=== PATIENT | female | born 1990 | race Caucasian/White ===

== ENCOUNTER → 2016-07-21 | Outpatient (CLI) | payer MEDICAID ==
[~2016-07-21] MED LIST: DOCU100C37 PO; FOLI20CA PO; IBUP-1780 PO; MULT-228 PO; OXYC-471 PO; SERT25TA PO
--- NOTE | 2016-07-21 18:25 | Diagnostic Imaging Report ---
OB ultrasound. INDICATION: growth. FINDINGS: The heart rate is 134 beats per minute. The placenta is anterior. There is no placenta previa. The position is cephalic. The cervix is long and is closed. The growth parameters are biparietal diameter at 31 weeks and 2 days, head circumference at 36 weeks and zero days, abdominal circumference at 34 weeks and 2 days and the femur length at 33 weeks and 5 days. This is averaged at 34 weeks and 6 days. Based on the ROYA provided Dr. Weeks's office of 09/11/2016, the current gestational age is at 32 weeks and 4 days. The average growth parameters are at 34 weeks and 6 days with the biparietal diameter at 1.9 standard deviation, at the upper limits of normal. Estimated weight at this time is 2.4 kg. IMPRESSION: Live single intrauterine . growth parameters is higher than average with biparietal diameter at 1.9 standard deviations above the mean. Dictated by: Dictated on workstation # [id number]
== END ==
LOC: RAD 14:12
PROVIDERS: ATTEND Obstetrics & Gynecology
DX: O26.843 Uterine size-date discrepancy, third trimester (principal); Z3A.34 34 weeks gestation of pregnancy
CPT/HCPCS: 76805

== ENCOUNTER → 2016-08-19 | Outpatient (CLI) | payer MEDICAID ==
--- NOTE | 2016-08-19 14:07 | Diagnostic Imaging Report ---
EXAMINATION: OB ultrasound. INDICATION: Followup growth. FINDINGS: heart rate is 134 beats per minute. The placenta is anterior. No placenta previa. Please note that the cervix appears to be open with perhaps 1 cm length of the cervix distally that is still closed. Better evaluation could be performed with a transvaginal ultrasound if needed. The amniotic fluid index is 23.5 cm. The right renal pelvis is slightly prominent at the 1 cm in AP dimension, at the upper limits of normal. The left kidney could not be seen due to position. The growth parameters are: Biparietal diameter: 38 weeks 4 days Head circumference: 40 weeks and 0 day Abdominal circumference: 38 weeks 3 days Femur length: 38 weeks 4 days These average at: 39 weeks and 0 day with estimated weight of 3.6 kg. This compares to a gestational age of 36 weeks and 5 days based on ROYA of 09/11/[address] Weeks. IMPRESSION: 1. The size and amniotic fluid index are at the upper limits of normal. 2. The cervix appears open with only short segment near the external os probably closed. Correlate clinically and with transvaginal ultrasound if needed. The findings are discussed with Dr. Weeks by Dr. Flores at time of dictation. Dictated by: Dictated on workstation # [id number]
== END ==
LOC: RAD 10:11
PROVIDERS: ATTEND Obstetrics & Gynecology
DX: O26.843 Uterine size-date discrepancy, third trimester (principal); Z3A.39 39 weeks gestation of pregnancy
CPT/HCPCS: 76816

== ENCOUNTER → 2016-08-22 | Outpatient (CLI) | payer MEDICAID ==
--- NOTE | 2016-08-22 10:14 | Diagnostic Imaging Report ---
EXAM: OB ultrasound and biophysical profile INDICATION: Polyhydramnios. FINDINGS: heart rate is 138 bpm. The placenta is anterior. No placenta previa. The amniotic fluid index is 18.3 cm. The renal pelvis is 9 mm in AP dimension bilaterally, upper limits of normal. Biophysical profile criteria are all met with total biophysical profile score of 8/8. position is cephalic. The growth parameters are: Biparietal diameter: 37 weeks 2 days Head circumference: 38 weeks and 5 days Abdominal circumference: 37 weeks 3 days Femur length: 38 weeks and 2 days These average at: 38 weeks and 0 day. This is within normal limits compared to gestational age of 37 weeks and 1 day based on ROYA of 09/11/2016. Differences in the growth parameters compared to 08/19/2016 exam are probably artifactual related to technique and positional differences. The cervix is not well-evaluated on this exam as it is obscured by the head. IMPRESSION: Biophysical profile score is 8/8. Dictated by: Dictated on workstation # [id number]
== END ==
LOC: RAD 08:23
PROVIDERS: ATTEND Obstetrics & Gynecology
DX: O26.843 Uterine size-date discrepancy, third trimester (principal); O40.3XX1 Polyhydramnios, third trimester, fetus 1; Z3A.37 37 weeks gestation of pregnancy
CPT/HCPCS: 76805; 76819

== ENCOUNTER → 2016-08-27 | Outpatient (CLI) | payer MEDICAID ==
--- NOTE | 2016-08-27 16:25 | Diagnostic Imaging Report ---
Biophysical profile OB ultrasound. INDICATION: 040.3x, polyhydramnios. FINDINGS: The heart rate is 136 beats per minute. position is cephalic. The amniotic fluid index is 27 cm. This is increased compared to 08/22/2016 measurement of 18.3 cm. Biophysical profile criteria are met with total score of 8/8. IMPRESSION: Polyhydramnios, HOA is 27 cm. The findings were given to Dr. Weeks by Ms. Wagner, the computer technologist who performed the exam. Dictated by: Dictated on workstation # [id number]
== END ==
LOC: RAD 13:39
PROVIDERS: ATTEND Obstetrics & Gynecology
DX: O40.3XX1 Polyhydramnios, third trimester, fetus 1 (principal); Z3A.00 Weeks of gestation of pregnancy not specified
CPT/HCPCS: 76819

== ENCOUNTER 2016-09-03 10:20 | Inpatient (IN) | payer MEDICAID ==
[~2016-09-03] VITALS: Ht 162.6 cm; Wt 117.5 kg
[2016-09-03] MEDS ORDERED: SERT25TA PO (10:35)
[2016-09-03] MEDS ORDERED: MULT-228 PO (10:35)
[2016-09-03] MEDS ORDERED: FOLI20CA PO (10:35)
[2016-09-03 10:43] VITALS: BP 126/77
[2016-09-03] MEDS ORDERED: fentaNYL INJECTION 100 MCG/2 ML AMP ONE (11:49)
[2016-09-03] MEDS ORDERED: KETAMINE HCL 100 MG/ML 5 ML VIAL ONE (11:49)
[2016-09-03 11:53] LABS: BASOPHILS % (AUTO) 0 % (0-10); EOSINOPHILS # (AUTO) 0.2 10^3/uL (0.0-0.3); EOSINOPHILS % (AUTO) 2 % (0-10); LYMPHOCYTES # (AUTO) 1.8 X 10^3 (1.0-4.0); LYMPHOCYTES % (AUTO) 17 % (12-44); MEAN CORPUSCULAR HEMOGLOBIN 32 PG (25-34); MEAN CORPUSCULAR HGB CONC 35 G/DL (32-36); MEAN CORPUSCULAR VOLUME 91 FL (80-99); MEAN PLATELET VOLUME 12.1 FL (7.4-10.4); MONOCYTES # (AUTO) 0.8 X 10^3 (0.0-1.0); MONOCYTES % (AUTO) 8 % (0-12); NEUTROPHILS # (AUTO) 7.4 X 10^3 (1.8-7.8); NEUTROPHILS % (AUTO) 73 % (42-75); PLATELET COUNT 158 10^3/uL (130-400); RED BLOOD COUNT 4.43 10^6/uL (4.35-5.85); RED CELL DISTRIBUTION WIDTH 13.4 % (10.0-14.5); WHITE BLOOD COUNT 10.1 10^3/uL (4.3-11.0)
[2016-09-03] MEDS ORDERED: ceFAZolin 2 GM/50 ML NS 50 ML ONE (11:59)
[2016-09-03] MEDS ORDERED: LACTATED RINGERS 1,000 ML IV ONE ×2 (12:00→12:56)
[2016-09-03] MEDS ORDERED: FAMOTIDINE 20MG/2ML IV (PEPCID) IV ONE (12:00)
[2016-09-03] MEDS ORDERED: CITRIC ACID/SOB CIT (BICITRA) 30 ML UDC PO ONE (12:00)
--- NOTE | 2016-09-03 12:13 | History & Physical-OB ---
OB - Chief Complaint & HPI Date Date of Admission: Date of Admission: Chief Complaint/History OB-Reason for Admission/Chief: Onset of Labor Hx : 2 Hx Para: 1 Expected Date of Delivery: September 11, 2016 Gestational Age in Weeks: 38 Gestational Age in Days: 5 Other reason for admission: 26 y/o @ 38w6d by 8 wk sono Presents with ctx q 2-3 mins since last night. No LOF VB. Fetus is active. Has also had emesis and not eaten at all this AM. H/o CD x 1 desiring repeat (baby adopted out) H/o pre-eclampsia at term, on ASA for risk reduction H/o tobacco use (quit) LGA fetus (3286g at 37 wga) GERD on zantac Depression on zoloft Polyhydramnios at 36 wga (last HOA 27cm) History of Labs A+ Antibody neg RI Hep B/C neg/neg HIV neg RPR NR GC/CT neg/neg GBS neg Allergies and Home Medications Allergies Coded Allergies: Penicillins (Verified Allergy, Unknown, RASH, 09/03/16) Home Medications Folic Acid 20 Mg Capsule, 20 MG PO DAILY, (Reported) Multivitamin 1 Each Tab.chew, 1 EACH PO DAILY, (Reported) Sertraline HCl 25 Mg Tablet, 25 MG PO DAILY, (Reported) OB - History Hx of Present Care: Yes Ultrasounds: Abnormal US findings (LGA fetus, polyhydramnios) Obstetrical Complications: Other (see above) Medical Complications: Other (see above HPI) Obstetrical History Hx : 2 Hx Para: 1 Number of Living Children: 1 Hx Induced Hypertens: Yes Delivery History Hx Section: Yes Patient Past Medical History see above HPI Social History/Family History HIV/AIDS: No Recent Infectious Disease Expo: No Sexually Transmitted Disease: No Alcohol Use: Denies Use Recreational Drug Use: No Smoking Cessation: Former smoker 2nd Hand Smoke Exposure: No Immunizations Hepatitis A: No Hepatitis B: No Tetanus Booster (TDap): Less than 5yrs Rubella: immune RPR/VDRL: Negative GBS Status: Negative HBsAG: Negative OB - Admission Exam Physical Exam Vitals: Vital Signs 09/03/16 10:43 Temp 98.0 Pulse 64 Resp 18 B/P (MAP) 126/77 O2 Delivery Room Air HEENT: NCAT Heart: Rhythm Normal Lungs: Clear Abdomen: Gravid Cervical Dilatation: Fingertip Effacement: 50% Station: -2 Membranes: Intact Heart Rate: 140's Accelerations: Accelerations Present Decelerations: No Decelerations Short Term Variability: Present Custodial Variability: Average (6-25) Contractions on Admission: < 5 Minutes Apart Labs Laboratory Tests Test 09/03/16 11:30 Range/Units White Blood Count 10.1 4.3-11.0 10^3/uL Red Blood Count 4.43 4.35-5.85 10^6/uL Hemoglobin 14.0 11.5-16.0 G/DL Hematocrit 41 35-52 % Mean Corpuscular Volume 91 80-99 FL Mean Corpuscular Hemoglobin 32 25-34 PG Mean Corpuscular Hemoglobin Concent 35 32-36 G/DL Red Cell Distribution Width 13.4 10.0-14.5 % Platelet Count 158 130-400 10^3/uL Mean Platelet Volume 12.1 H 7.4-10.4 FL Neutrophils (%) (Auto) 73 42-75 % Lymphocytes (%) (Auto) 17 12-44 % Monocytes (%) (Auto) 8 0-12 % Eosinophils (%) (Auto) 2 0-10 % Basophils (%) (Auto) 0 0-10 % Neutrophils # (Auto) 7.4 1.8-7.8 X 10^3 Lymphocytes # (Auto) 1.8 1.0-4.0 X 10^3 Monocytes # (Auto) 0.8 0.0-1.0 X 10^3 Eosinophils # (Auto) 0.2 0.0-0.3 10^3/uL Basophils # (Auto) 0.0 0.0-0.1 10^3/uL OB - Assessment/Plan/Diagnosis Plan Other Plan 26 y/o @ 38w6d with painful uterine contractions and history of CD. H/o CD x 1 desiring repeat (baby adopted out) H/o pre-eclampsia at term, on ASA for risk reduction H/o tobacco use (quit) LGA fetus (3286g at 37 wga) GERD on zantac Depression on zoloft Polyhydramnios at 36 wga (last HOA 27cm) Rh+ RI I counseled Gwen on risks of early term delivery, however with contractions not ceasing since last night (and verified on tocometer on admission), I think proceeding with delivery at this time is very reasonable. Spinal anesthesia Risks already reviewed including bleeding, infection, damage to surrounding structures To OR for CD now ADALBERTO MORLEY MD September 03, 2016 12:13
[2016-09-03] MEDS ORDERED: ceFAZolin 2 GM/50 ML NS 50 ML IV ONE (12:15)
--- NOTE | 2016-09-03 12:22 | Cesarean Section Operative ---
Procedure Procedure Note Date of Procedure: 09/03/16 Pre-operative Diagnosis: Gwen Vigil is a 26 y/o @ 38w6d with painful uterine contractions, history of delivery GBS neg Polyhydramnios Class III obesity Depression Post-operative Diagnosis: same Procedure: Repeat low transverse section Physician: Radha Weeks MD Estimated blood loss: 600 mL Disposition: Recovery room, stable Findings: Viable male , Apgars 8/9, weight 0xf30km, intact placenta, 3vc, normal appearing uterus, tubes, and ovaries. Indications: Gwen Vigil is a 26 y/o @ 38w6d who presented with painful contractions for 12 hours. She had made minimal cervical change however contractions were noted every 2-3 minutes on the monitor and she had vomited several times. The decision was made to proceed with early term delivery due to the risk of uterine rupture. Procedure Details: The patient was seen in pre-op and the procedure was discussed with the patient in full, including the risks, benefits, and alternatives. All questions were answered. The patient was taken to the operating room and a time out was performed, verifying patient and procedure. After spinal anesthesia was placed by our anesthesia colleagues, the patient was placed in the dorsal supine with leftward tilt for uterine displacement. Her abdomen was then prepped and draped in the typical sterile fashion. A Pfannenstiel skin incision was made using a scalpel and carried down through the underlying fascia. The fascia was incised in the midline and tented up using Hoda clamps. On both the inferior and superior fascia side the rectus muscle was dissected off bluntly and sharply using Roth scissors. The peritoneum was identified and entered bluntly in the midline. This was then stretched laterally using manual strength. After entering the abdominal cavity and confirming lack of intraperitoneal adhesions, a large Adair retractor was placed and the lower uterine segment was visualized. A bladder flap was created with the use of Metzenbaum scissors. A scalpel was utilized to make a low transverse uterine incision. Amniotomy was performed with an Allis clamp with return of copious clear fluid. The infant's head was grasped and brought to the level of the incision. Fundal pressure was applied and infant was delivered without difficulty. Mouth and nares were suctioned with bulb suction. After the umbilical cord was clamped and cut, the infant was handed off to the pediatric staff. A sample of cord blood was then obtained. The placenta was delivered intact via uterine massage. The uterus was cleared of all clots and debris. The uterine incision was closed using 0 Vicryl in a running locked fashion. A second imbricated layer was placed using 0 Vicryl in a running fashion as well. Again the hysterotomy site was examined and hemostasis was observed. The bilateral tubes and ovaries appeared normal. The abdominal gutters were cleared of all clots and debris. A final check of the uterine incision showed it to be hemostatic. The peritoneum was closed using 3- 0 Vicryl in a running fashion. The fascia was closed with 0 Vicryl in a running fashion. The subcutaneous space was hemostatic, and irrigated. The subcutaneous space was closed with 3-0 Vicryl in several single interrupted stitches. The skin was then closed using 4-0 Monocryl in a running subcuticular fashion. The skin edges were reapproximated together and were hemostatic. A pressure dressing was applied. All sponge, lap and needle counts were correct at the end of the procedure per nursing. Vitals - Labs Vital Signs - I&O Vital Signs Date Time Temp Pulse Resp B/P (MAP) Pulse Ox O2 Delivery O2 Flow Rate FiO2 09/03/16 10:43 98.0 64 18 126/77 Room Air Labs Laboratory Tests 09/03/16 11:30: White Blood Count 10.1, Red Blood Count 4.43, Hemoglobin 14.0, Hematocrit 41, Mean Corpuscular Volume 91, Mean Corpuscular Hemoglobin 32, Mean Corpuscular Hemoglobin Concent 35, Red Cell Distribution Width 13.4, Platelet Count 158, Mean Platelet Volume 12.1H, Neutrophils (%) (Auto) 73, Lymphocytes (%) (Auto) 17 , Monocytes (%) (Auto) 8, Eosinophils (%) (Auto) 2, Basophils (%) (Auto) 0, Neutrophils # (Auto) 7.4, Lymphocytes # (Auto) 1.8, Monocytes # (Auto) 0.8, Eosinophils # (Auto) 0.2, Basophils # (Auto) 0.0 RADHA WEEKS MD September 03, 2016 12:22
[2016-09-03] MEDS ORDERED: OXYTOCIN/NORMAL SALINE 500 ML IV ONE ×3 (12:44→14:12)
[2016-09-03] MEDS ORDERED: ONDANSETRON 4 MG/2 ML (SDV) Z0FRAN ONE (12:56)
[2016-09-03] MEDS ORDERED: KETOROLAC 30 MG/ML VIAL ONE (12:56)
[2016-09-03] MEDS: KETOROLAC 30 MG/ML VIAL IVP SCH ×3 (13:00→23:43)
--- NOTE | 2016-09-03 13:36 | Discharge Inst-Women's Service ---
Discharge Inst-Women's Serv Depart Medication/Instructions New, Converted or Re-Newed RX: RX on Chart Final Diagnosis Repeat CD, painful uterine contractions Consults/Follow Up Additional Follow Up: Yes Orders/Referrals 7-[address] Weeks [address] Weeks Activity Activity: Activity as Tolerated Driving Instructions: No Driving for 1 Week (or while taking narcotic pain medications) NO SMOKING: NO SMOKING Nothing Inside Vagina: No Douching, No [place], No Tampons Other Activity No heavy lifting > 10 lb No strenuous activity Diet Discharge Diet: No Restrictions Symptoms to Report to DrJacqueline: Bleeding Excessive, Pain Increased, Fever Over 101 Degrees F, Pain/Pressure in Chest, Vaginal Bleeding Increase, Dizziness/Fainting , Nausea/Vomiting, Shortness of Breath For Any Problems or Questions: Contact Your Physician, Go to Emergency Room Skin/Wound Care Infection Signs and Symptoms: Increased Redness, Foul Odor of Wound, Increased Drainage Operative Area Clean and Dry: Keep Incision Clean/Dry Stitches/[place]/Dermabond: Dermabond, Care of Stitches Bathing Instructions: ADALBERTO Larson MD September 03, 2016 13:36
[2016-09-03] MEDS: OXYTOCIN/NORMAL SALINE 500 ML IV SCH ×2 (14:10→18:12)
[2016-09-03 14:13] VITALS: BP 108/72
[2016-09-03 14:48] VITALS: BP 118/87
[2016-09-03] MEDS ORDERED: morphine INJ 4 MG/ML 1 ML (VIAL/SYRINGE) IVP PRN ×2 (15:15→15:45)
[2016-09-03 16:10] VITALS: BP 119/75
[2016-09-03] MEDS: oxyCODONE/APAP 5/325MG (PERCOCET 5) TABLET PO PRN ×2 (16:58→21:37)
[2016-09-03] MEDS: CATHETER FLUSH 10 ML SYR IV SCH (18:52)
[2016-09-03 19:41] VITALS: BP 118/76
[2016-09-03] MEDS: DOCUSATE SODIUM 100 MG (COLACE) CAP PO SCH (21:35)
[2016-09-03] MEDS: FAMOTIDINE 20 MG (PEPCID) TABLET PO SCH (21:35)
[2016-09-03 23:43] VITALS: BP 109/70
[2016-09-04 04:04] VITALS: BP 128/86
[2016-09-04] MEDS: oxyCODONE/APAP 5/325MG (PERCOCET 5) TABLET PO PRN ×5 (04:04→19:38)
[2016-09-04 06:01] LABS: BASOPHILS % (AUTO) 0 % (0-10); EOSINOPHILS # (AUTO) 0.2 10^3/uL (0.0-0.3); EOSINOPHILS % (AUTO) 2 % (0-10); LYMPHOCYTES % (AUTO) 23 % (12-44); MEAN CORPUSCULAR HEMOGLOBIN 31 PG (25-34); MEAN CORPUSCULAR HGB CONC 34 G/DL (32-36); MEAN CORPUSCULAR VOLUME 93 FL (80-99); MEAN PLATELET VOLUME 11.7 FL (7.4-10.4); MONOCYTES # (AUTO) 0.8 X 10^3 (0.0-1.0); MONOCYTES % (AUTO) 9 % (0-12); NEUTROPHILS # (AUTO) 5.7 X 10^3 (1.8-7.8); NEUTROPHILS % (AUTO) 66 % (42-75); PLATELET COUNT 128 10^3/uL (130-400); RED BLOOD COUNT 3.57 10^6/uL (4.35-5.85); RED CELL DISTRIBUTION WIDTH 13.4 % (10.0-14.5); WHITE BLOOD COUNT 8.6 10^3/uL (4.3-11.0)
[2016-09-04] MEDS: KETOROLAC 30 MG/ML VIAL IVP SCH (06:19)
[2016-09-04] MEDS: CATHETER FLUSH 10 ML SYR IV SCH (06:20)
[2016-09-04 07:26] VITALS: BP 113/73
[2016-09-04] MEDS: DOCUSATE SODIUM 100 MG (COLACE) CAP PO SCH ×2 (07:29→21:13)
[2016-09-04] MEDS: FAMOTIDINE 20 MG (PEPCID) TABLET PO SCH ×2 (07:30→21:13)
[2016-09-04] MEDS ORDERED: SERTRALINE 50 MG (ZOLOFT) TABLET PO ONE (08:00)
--- NOTE | 2016-09-04 10:50 | Progress Note-Standard ---
Standard Progress Note Progress Notes/Assess & Plan Progress/Assessment & Plan Patient doing well. No concerns voiced. Lochia light. Pain well controlled. Vital Sign - Last 24 Hours 09/03/16 09/03/16 09/03/16 09/03/16 14:13 14:48 16:10 19:41 Temp 97.8 98.2 99.0 96.9 Pulse 76 76 92 79 Resp 17 16 17 16 B/P (MAP) 108/72 118/87 119/75 118/76 Pulse Ox 100 100 95 98 O2 Delivery Room Air Room Air Room Air Room Air 09/03/16 09/04/16 09/04/16 23:43 04:04 07:26 Temp 97.6 97.0 96.4 Pulse 74 87 77 Resp 18 18 B/P (MAP) 109/70 128/86 113/73 Pulse Ox 97 99 97 O2 Delivery Room Air Room Air Intake and Output 09/03/16 09/03/16 09/04/16 15:00 23:00 07:00 Intake Total 1050 ml 1100 ml 1100 ml Output Total 125 ml 1300 ml Balance 925 ml 1100 ml -200 ml Laboratory Tests Test 09/03/16 11:30 09/04/16 05:48 Range/Units White Blood Count 10.1 8.6 4.3-11.0 10^3/uL Red Blood Count 4.43 3.57 L 4.35-5.85 10^6/uL Hemoglobin 14.0 11.2 L 11.5-16.0 G/DL Hematocrit 41 33 L 35-52 % Mean Corpuscular Volume 91 93 80-99 FL Mean Corpuscular Hemoglobin 32 31 25-34 PG Mean Corpuscular Hemoglobin Concent 35 34 32-36 G/DL Red Cell Distribution Width 13.4 13.4 10.0-14.5 % Platelet Count 158 128 L 130-400 10^3/uL Mean Platelet Volume 12.1 H 11.7 H 7.4-10.4 FL Neutrophils (%) (Auto) 73 66 42-75 % Lymphocytes (%) (Auto) 17 23 12-44 % Monocytes (%) (Auto) 8 9 0-12 % Eosinophils (%) (Auto) 2 2 0-10 % Basophils (%) (Auto) 0 0 0-10 % Neutrophils # (Auto) 7.4 5.7 1.8-7.8 X 10^3 Lymphocytes # (Auto) 1.8 2.0 1.0-4.0 X 10^3 Monocytes # (Auto) 0.8 0.8 0.0-1.0 X 10^3 Eosinophils # (Auto) 0.2 0.2 0.0-0.3 10^3/uL Basophils # (Auto) 0.0 0.0 0.0-0.1 10^3/uL Incision: c/d/i Diagnosis: POD 1 section P: Continue routine po care Anticipate dc tomorrow PHUC PINTO DO September 04, 2016 10:50 am
[2016-09-04] MEDS ORDERED: IBUPROFEN 800 MG (MOTRIN) TAB PO ONE (12:14)
[2016-09-04] MEDS: IBUPROFEN 800 MG (MOTRIN) TAB PO SCH ×2 (12:19→18:20)
[2016-09-04 12:21] VITALS: BP 115/77
--- NOTE | 2016-09-04 14:54 | Anesthesia-Regional Post-Op ---
Regional Patient Condition Mental Status: Alert, Oriented x3 Circulation: Same as Pre-Op Headache: Absent Sensation: Full Recovery Motor Block: Absent Post Op Complications Complications None Follow Up Care/Instructions Patient Instructions None needed. Anesthesia/Patient Condition Patient is doing well, no complaints, stable vital signs, no apparent adverse anesthesia problems. RAEGAN LÓPEZ DO September 04, 2016 14:54
[2016-09-04 21:15] VITALS: BP 128/85
[2016-09-05] MEDS: IBUPROFEN 800 MG (MOTRIN) TAB PO SCH ×3 (00:19→13:00)
[2016-09-05 00:20] VITALS: BP 103/65
[2016-09-05] MEDS: oxyCODONE/APAP 5/325MG (PERCOCET 5) TABLET PO PRN ×3 (04:23→14:05)
[2016-09-05 04:25] VITALS: BP 108/69
[2016-09-05] MEDS ORDERED: OXYC-471 PO (08:12)
[2016-09-05] MEDS ORDERED: DOCU100C37 PO (08:12)
[2016-09-05] MEDS ORDERED: IBUP-1780 PO (08:12)
--- NOTE | 2016-09-05 08:14 | Postpartum Progress Note ---
Post Op Post-operative Day #2 Subjective: Patient is without complaints. Ambulating, voiding after mccracken removed. Tolerating a regular diet without nausea or vomiting. Normal lochia. Pain is well controlled with oral pain medications. Passing flatus. Breast feeding, states this is going very well. Would like to d/c home today. Objective: VS - Last 72 Hours, by Label 09/03/16 09/03/16 09/03/16 09/03/16 10:43 14:13 14:48 16:10 Temp 98.0 97.8 98.2 99.0 Pulse 64 76 76 92 Resp 16 17 B/P (MAP) 126/77 108/72 118/87 119/75 Pulse Ox 100 100 95 O2 Delivery Room Air Room Air Room Air Room Air 09/03/16 09/03/16 09/04/16 09/04/16 19:41 23:43 04:04 07:26 Temp 96.9 97.6 97.0 96.4 Pulse 79 74 87 77 Resp 16 16 18 18 B/P (MAP) 118/76 109/70 128/86 113/73 Pulse Ox 98 97 99 97 O2 Delivery Room Air Room Air Room Air 09/04/16 09/04/16 09/05/16 09/05/16 12:21 21:15 00:20 04:25 Temp 96.2 97.3 97.4 97.4 Pulse 76 74 70 74 Resp 18 18 18 18 B/P (MAP) 115/77 128/85 103/65 108/69 Pulse Ox 98 99 96 98 O2 Delivery Room Air Room Air Room Air Room Air Physical Exam: General - Alert and oriented, no apparent distress Abdomen - Soft, appropriately tender to palpation, non-distended, fundus firm at umbilicus Incision - clean, dry and intact; no erythema or induration, no drainage Extremities - trace bilat pitting edema, negative Jose's bilaterally no new labs Assessment: 26 y/o post-operative day # 2, status post RLTCS. Recovering well, hemodynamically stable GERD on zantac Depression on zoloft Rh+ RI Plan: Routine post-operative care. Encourage breast feeding. Encourage ambulation. VTE prophylaxis: SCDs. Plan for discharge today, f/u with me in 7-10 days. Vitals - Labs Vital Signs - I&O Vital Signs Date Time Temp Pulse Resp B/P (MAP) Pulse Ox O2 Delivery O2 Flow Rate FiO2 09/05/16 04:25 97.4 74 18 108/69 98 Room Air 09/05/16 00:20 97.4 70 18 103/65 96 Room Air 09/04/16 21:15 97.3 74 18 128/85 99 Room Air 09/04/16 12:21 96.2 76 18 115/77 98 Room Air I & O 09/05/16 07:00 Intake Total 1250 ml Output Total 1800 ml Balance -550 ml ADALBERTO MORLEY MD September 05, 2016 08:14
[2016-09-05] MEDS: DOCUSATE SODIUM 100 MG (COLACE) CAP PO SCH (08:35)
[2016-09-05] MEDS: FAMOTIDINE 20 MG (PEPCID) TABLET PO SCH (08:35)
[2016-09-05 08:37] VITALS: BP 147/87
== END 2016-09-05 15:00 | disposition home or self-care (01) | DRG 765 ==
LOC: WSo 10:20 → LDRP 10:22 → WSo 12:10 → LDRP 12:11
PROVIDERS: ADMIT Obstetrics & Gynecology; ATTEND Obstetrics & Gynecology
PROC: 10D00Z1 Extraction of Products of Conception, Low, Open Approach (ICD-10-PCS; principal; 2016-09-03 12:18)
DX: O34.211 Maternal care for low transverse scar from previous cesarean delivery (principal); O40.3XX0 Polyhydramnios, third trimester, not applicable or unspecified; O99.344 Other mental disorders complicating childbirth; F32.9 Major depressive disorder, single episode, unspecified; O99.63 Diseases of the digestive system complicating the puerperium; K21.9 Gastro-esophageal reflux disease without esophagitis; Z87.891 Personal history of nicotine dependence; Z37.0 Single live birth; Z3A.38 38 weeks gestation of pregnancy
CPT/HCPCS: 36415; 85025; 86850; 86900; 86901; 94664; 99212

== ENCOUNTER 2019-12-28 11:25 | Emergency (ER) | payer SELFPAY ==
[~2019-12-28] VITALS: Ht 162.5 cm; Wt 104.3 kg
[2019-12-28] MEDS ORDERED: LACTATED RINGERS 1,000 ML IV SCH (11:45)
--- NOTE | 2019-12-28 11:48 | ED GU-Female ---
General Stated Complaint: HEAVY MENSTRUAL BLEEDING Source: patient Exam Limitations: no limitations History of Present Illness Date Seen by Provider: Dec 28, 2019 Time Seen by Provider: 11:43 Initial Comments Patient present to the ED today complaining of heavy menstrual bleeding. She states she started "spotting" approx 2 weeks ago and the heavy bleeding with passing of clots started , 12/22/2019. She reports a clot this morning as big as her palm and near syncope events x2 which is the reason she seeked out ED care. Patient denies abd pain besides "normal menstrual discomfort". The patient reports she has PCOS and she is accustomed to irregular menses. Patient is with 2 previous full term births delivered via without complications. The patient is not currently on or using any form of control and states her likelihood of is low. The patient reports heart racing yesterday. She states she has never had this heavy of a menstrual cycle with lightheaded feeling. Timing/Duration: this morning Severity/Quality: mild Activities at Onset: none Prior Genitourinary Problems: similar symptoms Sexual [place] History: less than 2 months ago, single partner Modifying Factors: Improves With Analgesics, Improves With Antacids, Improves With Breathing, Improves With Coughing, Improves With Defecating, Improves With Eating, Improves With Exercise, Improves With Lying down, Improves With Movement, Improves With Palpation, Improves With Resting, Improves With Urinating, Improves With Vomiting, Improves With Other Associated Symptoms: nausea/vomiting Allergies and Home Medications Allergies Coded Allergies: Penicillins (Verified Allergy, Unknown, RASH, 09/03/16) Home Medications Docusate Sodium 100 Mg Capsule, 100 MG PO BID Prescribed by: ADALBERTO MORLEY on 09/05/16811 Folic Acid 20 Mg Capsule, 20 MG PO DAILY, (Reported) Ibuprofen 800 Mg Tablet, 800 MG PO Q6HR Prescribed by: ADALBERTO MORLEY on 09/05/16811 Multivitamin 1 Each Tab.chew, 1 EACH PO DAILY, (Reported) Oxycodone HCl/Acetaminophen 1 Each Tablet, 1-2 TAB PO Q3H PRN for PAIN-MODERATE Prescribed by: ADALBERTO MORLEY on 09/05/16811 Sertraline HCl 25 Mg Tablet, 25 MG PO DAILY, (Reported) Patient Home Medication List Home Medication List Reviewed: Yes Review of Systems Review of Systems Constitutional: see HPI EENTM: see HPI Respiratory: no symptoms reported Cardiovascular: No no symptoms reported; palpitations Gastrointestinal: see HPI Genitourinary: see HPI : No Musculoskeletal: no symptoms reported Skin: no symptoms reported Psychiatric/Neurological: No Symptoms Reported Endocrine: No Symptoms Reported Hematologic/Lymphatic: No Symptoms Reported Past Hlpjslb-Hkzivs-Hvvswh Hx Patient Social History 2nd Hand Smoke Exposure: No Recent Foreign Travel: No Contact w/Someone Who Travel: No Recent Hopitalizations: No Immunizations Up To Date Tetanus Booster (TDap): Less than 5yrs PED Vaccines UTD: Yes Seasonal Allergies Seasonal Allergies: Yes Past Medical History Surgeries: No Respiratory: No Cardiac: No Neurological: No Female Reproductive Disorders: Denies Sexually Transmitted Disease: No HIV/AIDS: No Genitourinary: No Gastrointestinal: No Musculoskeletal: No Endocrine: No HEENT: No Cancer: No Psychosocial: Yes Anxiety Integumentary: No Blood Disorders: No Adverse Reaction/Blood Tranf: No Family Medical History Cardiovascular disease 19 FATHER Hypertension 19 FATHER 19 MOTHER Physical Exam Vital Signs Capillary Refill : Height, Weight, BMI Height: 5'4.00" Weight: 259lbs. 0.0oz. 117.026940ev; 44.5 BMI Method: General Appearance: WD/WN, obese Neck: full range of motion, normal inspection Cardiovascular: regular rate, rhythm, no edema Respiratory: lungs clear, normal breath sounds Gastrointestinal: non tender, soft Back: normal inspection, no vertebral tenderness Extremities: normal range of motion, non-tender Neurologic/Psychiatric: alert, oriented x 3 Skin: normal color, warm/dry Progress/Results/Core Measures Suspected Sepsis SIRS Temperature: Pulse: Respiratory Rate: Laboratory Tests 12/28/19 11:40: White Blood Count 7.0 Blood Pressure / Mean: Laboratory Tests 12/28/19 11:40: Platelet Count 284 Results/Orders Lab Results Laboratory Tests Test 12/28/19 11:40 Range/Units White Blood Count 7.0 4.3-11.0 10^3/uL Red Blood Count 4.36 4.35-5.85 10^6/uL Hemoglobin 12.9 11.5-16.0 G/DL Hematocrit 39 35-52 % Mean Corpuscular Volume 89 80-99 FL Mean Corpuscular Hemoglobin 30 25-34 PG Mean Corpuscular Hemoglobin Concent 33 32-36 G/DL Red Cell Distribution Width 13.3 10.0-14.5 % Platelet Count 284 130-400 10^3/uL Mean Platelet Volume 11.9 H 7.4-10.4 FL Neutrophils (%) (Auto) 54 42-75 % Lymphocytes (%) (Auto) 34 12-44 % Monocytes (%) (Auto) 7 0-12 % Eosinophils (%) (Auto) 4 0-10 % Basophils (%) (Auto) 0 0-10 % Neutrophils # (Auto) 3.8 1.8-7.8 X 10^3 Lymphocytes # (Auto) 2.4 1.0-4.0 X 10^3 Monocytes # (Auto) 0.5 0.0-1.0 X 10^3 Eosinophils # (Auto) 0.3 0.0-0.3 10^3/uL Basophils # (Auto) 0.0 0.0-0.1 10^3/uL My Orders Orders - KAITLIN CABRAL APRN Cbc With Automated Diff (12/28/19 11:32) Hcg,Qualitative Serum (12/28/19 11:32) Lactated Ringers (Lr 1000 Ml Iv Solution (12/28/19 11:45) Iv Heplock-Insert (Order) (12/28/19 11:41) Vital Signs/I&O Capillary Refill : Departure Impression Primary Impression: Dysfunctional uterine bleeding Additional Impression: Lightheadedness Disposition: 01 HOME, SELF-CARE Condition: Stable Departure-Patient Inst. Decision time for Depature: 12:11 Referrals: PHUC PINTO DENNIS G MD SHAW, ANGELA C DO Patient Instructions: IRREGULAR VAGINAL BLEEDING Add. Discharge Instructions: Please return to ED for recurrent passing out events, increased bleeding, or fevers. Take prescription as written. Call one of the listed gynecologists for a follow-up appointment this week. Scripts Medroxyprogesterone Acetate (Medroxyprogesterone Acetate) 10 Mg Tablet 10 MG PO DAILY, #10 TAB Prov: KAITLIN CABRAL APRN 12/28/19 KAITLIN CABRAL APRN Dec 28, 2019 11:48
[2019-12-28 12:00] LABS: BASOPHILS % (AUTO) 0 % (0-10); EOSINOPHILS # (AUTO) 0.3 10^3/uL (0.0-0.3); EOSINOPHILS % (AUTO) 4 % (0-10); HEMATOCRIT 39 % (35-52); HEMOGLOBIN 12.9 G/DL (11.5-16.0); LYMPHOCYTES # (AUTO) 2.4 X 10^3 (1.0-4.0); LYMPHOCYTES % (AUTO) 34 % (12-44); MEAN CORPUSCULAR HEMOGLOBIN 30 PG (25-34); MEAN CORPUSCULAR HGB CONC 33 G/DL (32-36); MEAN CORPUSCULAR VOLUME 89 FL (80-99); MEAN PLATELET VOLUME 11.9 FL (7.4-10.4); MONOCYTES # (AUTO) 0.5 X 10^3 (0.0-1.0); MONOCYTES % (AUTO) 7 % (0-12); NEUTROPHILS # (AUTO) 3.8 X 10^3 (1.8-7.8); NEUTROPHILS % (AUTO) 54 % (42-75); PLATELET COUNT 284 10^3/uL (130-400); RED CELL DISTRIBUTION WIDTH 13.3 % (10.0-14.5)
[2019-12-28] MEDS ORDERED: MEDR10TA9 PO (12:15)
[2019-12-28 12:38] VITALS: BP 130/83
== END 2019-12-28 12:42 | disposition home or self-care (01) ==
LOC: EDUNIT# 11:25 → ER 11:28
DX: N93.8 Other specified abnormal uterine and vaginal bleeding (principal); R42 Dizziness and giddiness; F41.9 Anxiety disorder, unspecified; Z82.49 Family history of ischemic heart disease and other diseases of the circulatory system; Z88.0 Allergy status to penicillin
CPT/HCPCS: 36415; 84703; 85025; 99282

== ENCOUNTER → 2021-03-20 | Outpatient (CLI) | payer OTHER ==
[~2021-03-20] MED LIST changes: +MEDR10TA9 PO; -OXYC-471 PO; +OXYC1TAB11 PO
[2021-03-20 16:12] LABS: HEMATOCRIT 40 % (35-52); HEMOGLOBIN 13.2 g/dL (11.5-16.0); MEAN CORPUSCULAR HEMOGLOBIN 30 pg (25-34); MEAN CORPUSCULAR HGB CONC 33 g/dL (32-36); MEAN CORPUSCULAR VOLUME 90 fL (80-99); MEAN PLATELET VOLUME 11.3 fL (9.0-12.2); PLATELET COUNT 262 10^3/uL (130-400); WHITE BLOOD COUNT 9.9 10^3/uL (4.3-11.0)
== END ==
LOC: LAB FS 15:19
PROVIDERS: ATTEND Family Medicine
DX: N92.6 Irregular menstruation, unspecified (principal); Z83.3 Family history of diabetes mellitus
CPT/HCPCS: 36415; 83036; 84403; 84443; 85027

== ENCOUNTER → 2021-07-04 | Outpatient (CLI) | payer OTHER ==
--- NOTE | 2021-07-04 13:02 | Diagnostic Imaging Report ---
PROCEDURE: Pelvic comp/transvaginal sonogram. TECHNIQUE: Complete transabdominal and transvaginal pelvic ultrasound was performed. In addition, limited pelvic Doppler was performed. INDICATION: Irregular menses and lower abdominal pain. FINDINGS: The uterus is anteverted measuring 8.6 x 4.5 x 5.4 cm. No myometrial mass is detected. The endometrium is 11 mm in thickness. The right ovary measures 3.8 x 2.7 x 2.1 cm and the left ovary measures 3.3 x 2.3 x 2.3 cm. Both ovaries do contain multiple small peripheral based follicles. There is blood flow to both ovaries. No adnexal mass or free fluid is detected. IMPRESSION: Essentially unremarkable transabdominal and transvaginal pelvic ultrasound. The ovarian follicle pattern can be seen with polycystic ovarian syndrome. Clinical correlation is recommended. Dictated by: Dictated on workstation # [id number]
== END ==
LOC: RAD 12:00
PROVIDERS: ATTEND Obstetrics & Gynecology
DX: E28.2 Polycystic ovarian syndrome (principal)
CPT/HCPCS: 76830; 76856

== ENCOUNTER → 2022-03-06 | Outpatient (CLI) | payer OTHER ==
--- NOTE | 2022-03-06 09:52 | Diagnostic Imaging Report ---
INDICATION: Left knee pain AP and lateral views of left knee are obtained. FINDINGS: No acute fracture or dislocation is identified. No abnormal lytic or sclerotic focus is seen, and there is no radiopaque foreign body. IMPRESSION: No acute abnormality. Dictated by: Dictated on workstation # [id number]
== END ==
LOC: RAD FS 09:11
PROVIDERS: ATTEND Nurse Practitioner Family
DX: M25.562 Pain in left knee (principal)
CPT/HCPCS: 73560

== ENCOUNTER 2022-10-21 05:09 | Emergency (ER) | payer OTHER ==
[2022-10-21] MEDS ORDERED: KETOROLAC 30 MG/ML VIAL IVP ONE (05:30)
[2022-10-21] MEDS ORDERED: NS IV 1000 ML 1,000 ML IV SCH (05:30)
[2022-10-21] MEDS ORDERED: diphenhydrAMINE 50 MG/ML INJ (BENADRYL) IVP ONE (05:30)
[2022-10-21] MEDS ORDERED: CLINDAMYCIN 900 MG/50 ML IVPB 50 ML IV ONE (05:30)
[2022-10-21 05:38] LABS: BASOPHILS % (AUTO) 0 % (0-10); EOSINOPHILS # (AUTO) 0.3 10^3/uL (0.0-0.3); EOSINOPHILS % (AUTO) 3 % (0-10); HEMATOCRIT 41 % (35-52); LYMPHOCYTES # (AUTO) 0.3 10^3/uL (1.0-4.0); LYMPHOCYTES % (AUTO) 3 % (12-44); MEAN CORPUSCULAR HEMOGLOBIN 32 pg (25-34); MEAN CORPUSCULAR HGB CONC 35 g/dL (32-36); MEAN CORPUSCULAR VOLUME 92 fL (80-99); MEAN PLATELET VOLUME 11.9 fL (9.0-12.2); MONOCYTES # (AUTO) 0.4 10^3/uL (0.0-1.0); MONOCYTES % (AUTO) 4 % (0-12); NEUTROPHILS # (AUTO) 8.7 10^3/uL (1.8-7.8); NEUTROPHILS % (AUTO) 90 % (42-75); PLATELET COUNT 151 10^3/uL (130-400); WHITE BLOOD COUNT 9.7 10^3/uL (4.3-11.0)
--- NOTE | 2022-10-21 05:42 | ED General ---
General Chief Complaint: Bite-Animal/Human/Insect Stated Complaint: SPIDER BITE Nursing Triage Note: Pt states she was seen at urgent care yesterday for a spider bite in her left armpit. Pt was prescribed Bactrim and took her first dose last night. Pt states the swelling and redness has gotten worse and she has body aches, fever, and nausea Source of Information: Patient, RN Notes Reviewed Exam Limitations: No Limitations History of Present Illness Date Seen by Provider: Oct 21, 2022 Time Seen by Provider: 05:13 Initial Comments 32-year-old female patient states she had an area of pain and erythema in left axillary area since yesterday morning and was seen at urgent care yesterday afte rnanna and had prescription for Bactrim and took the first dose last night but had fever of 1013 hrs. prior to arrival to ER and took ibuprofen. Patient also complaining of increasing pain and area of erythema and complaining of nausea and skin rash and myalgia and rated her pain 9/10. Patient did not have history of MRSA. Patient is up-to-date with tetanus immunization. Allergies and Home Medications Allergies Coded Allergies: Penicillins (Verified Allergy, Unknown, RASH, 09/03/16) Patient Home Medication List Home Medication List Reviewed: Yes Docusate Sodium (Docusate Sodium) 100 Mg Capsule, 100 MG PO BID Prescribed by: ADALBERTO MORLEY on 09/05/16 0812 Folic Acid (Folic Acid) 20 Mg Capsule, 20 MG PO DAILY, (Reported) Entered as Reported by: MARGO HEMPHILL on 09/03/16 1035 Hydrocodone/Acetaminophen (Hydrocodone-Acetamin 5-325 mg) 5 Mg-325 Mg Tablet, 1 TAB PO Q6H PRN for PAIN-MODERATE (5-7) Prescribed by: Jenni borden on 10/21/22 0636 Ibuprofen (Ibuprofen) 800 Mg Tablet, 800 MG PO Q6HR Prescribed by: ADALBERTO MORLEY on 09/05/16 0812 Medroxyprogesterone Acetate (Medroxyprogesterone Acetate) 10 Mg Tablet, 10 MG PO DAILY Prescribed by: KAITLIN CABRAL on 12/28/19 1215 Multivitamin (Flintstones) 1 Each Tab.chew, 1 EACH PO DAILY, (Reported) Entered as Reported by: MARGO HEMPHILL on 09/03/16 1035 Mupirocin (Mupirocin) 2 % Oin.pf.deborah, 1 GM TP BID Prescribed by: Jenni borden on 10/21/22 0638 Oxycodone HCl/Acetaminophen (Oxycodone-Acetaminophen 5-325) 1 Each Tablet, 1-2 TAB PO Q3H PRN for PAIN-MODERATE Prescribed by: ADALBERTO MORLEY on 09/05/16 0812 Sertraline HCl (Zoloft) 25 Mg Tablet, 25 MG PO DAILY, (Reported) Entered as Reported by: MARGO HEMPHILL on 09/03/16 1035 Review of Systems Review of Systems Constitutional: see HPI EENTM: see HPI Respiratory: see HPI Cardiovascular: see HPI Gastrointestinal: see HPI Genitourinary: see HPI Musculoskeletal: see HPI Skin: see HPI Psychiatric/Neurological: See HPI Immunological/Allergic: see HPI All Other Systems Reviewed Negative Unless Noted: Yes Past Qyrtbgj-Zzqitx-Ybeylr Hx Patient Social History Tobacco Use?: No Use of E-Cig and/or Vaping dev: No Substance use?: No Alcohol Use?: No Immunizations Up To Date Tetanus Booster (TDap): Less than 5yrs PED Vaccines UTD: Yes Seasonal Allergies Seasonal Allergies: Yes Past Medical History Surgeries: Yes Section Respiratory: No Cardiac: No Neurological: No Female Reproductive Disorders: Polycystic Ovarian Dis Sexually Transmitted Disease: No HIV/AIDS: No Genitourinary: No Gastrointestinal: No Musculoskeletal: No Endocrine: No HEENT: No Cancer: No Psychosocial: Yes Anxiety Integumentary: No Blood Disorders: No Adverse Reaction/Blood Tranf: No Family Medical History Cardiovascular disease 19 FATHER Hypertension 19 FATHER 19 MOTHER Physical Exam Vital Signs Vital Signs - First Documented 10/21/22 05:13 Temp 37.9 Pulse 104 Resp 18 B/P (MAP) 137/82 (100) Pulse Ox 99 O2 Delivery Room Air Capillary Refill : Less Than 3 Seconds Height, Weight, BMI Height: 5'4.00" Weight: 259lbs. 0.0oz. 117.659349hz; 39.00 BMI Method: General Appearance: Mild Distress Eyes: Bilateral Eye Normal Inspection, Bilateral Eye PERRL HEENT: PERRL/EOMI Neck: Full Range of Motion Respiratory: Chest Non Tender, Lungs Clear, Normal Breath Sounds, No Accessory Muscle Use Cardiovascular: No Edema, No Gallop, No JVD, No Murmur, Normal Peripheral Pulses, Tachycardia Back: Normal Inspection Extremity: Normal Capillary Refill, Normal Range of Motion Neurologic/Psychiatric: Alert, Oriented x3 Skin: Warm/Dry, Erythema (5 x 5 cm area of erythema on left axillary area with central discoloration of 0.5 cm without fluctuation or signs of abscess) Lymphatic: No Adenopathy Focused Exam Lactate Level 10/21/22 05:20: Lactic Acid Level 1.05 Lactic Acid Level Laboratory Tests Test 10/21/22 05:20 Lactic Acid Level 1.05 MMOL/L (0.50-2.00) Progress/Results/Core Measures Suspected Sepsis SIRS Temperature: Pulse: 104 Respiratory Rate: 18 Laboratory Tests 10/21/22 05:20: White Blood Count 9.7 Blood Pressure 137 /82 Mean: 100 10/21/22 05:20: Lactic Acid Level 1.05 Laboratory Tests 10/21/22 05:20: Creatinine 0.85, Platelet Count 151, Total Bilirubin 0.6 Results/Orders Lab Results Laboratory Tests Test 10/21/22 05:20 Range/Units White Blood Count 9.7 4.3-11.0 10^3/uL Red Blood Count 4.41 3.80-5.11 10^6/uL Hemoglobin 14.0 11.5-16.0 g/dL Hematocrit 41 35-52 % Mean Corpuscular Volume 92 80-99 fL Mean Corpuscular Hemoglobin 32 25-34 pg Mean Corpuscular Hemoglobin Concent 35 32-36 g/dL Red Cell Distribution Width 12.4 10.0-14.5 % Platelet Count 151 130-400 10^3/uL Mean Platelet Volume 11.9 9.0-12.2 fL Immature Granulocyte % (Auto) 0 % Neutrophils (%) (Auto) 90 H 42-75 % Lymphocytes (%) (Auto) 3 L 12-44 % Monocytes (%) (Auto) 4 0-12 % Eosinophils (%) (Auto) 3 0-10 % Basophils (%) (Auto) 0 0-10 % Neutrophils # (Auto) 8.7 H 1.8-7.8 10^3/uL Lymphocytes # (Auto) 0.3 L 1.0-4.0 10^3/uL Monocytes # (Auto) 0.4 0.0-1.0 10^3/uL Eosinophils # (Auto) 0.3 0.0-0.3 10^3/uL Basophils # (Auto) 0.0 0.0-0.1 10^3/uL Immature Granulocyte # (Auto) 0.0 0.0-0.1 10^3/uL Neutrophils % (Manual) 79 % Lymphocytes % (Manual) 2 % Monocytes % (Manual) 3 % Eosinophils % (Manual) 4 % Band Neutrophils 10 % Reactive Lymphocytes 2 % Platelet Estimate NORMAL Blood Morphology Comment NORMAL Sodium Level 138 135-145 MMOL/L Potassium Level 3.6 3.6-5.0 MMOL/L Chloride Level 105 98-107 MMOL/L Carbon Dioxide Level 20 L 21-32 MMOL/L Anion Gap 13 5-14 MMOL/L Blood Urea Nitrogen 7 7-18 MG/DL Creatinine 0.85 0.60-1.30 MG/DL Estimat Glomerular Filtration Rate 93 BUN/Creatinine Ratio 8 Glucose Level 140 H 70-105 MG/DL Lactic Acid Level 1.05 0.50-2.00 MMOL/L Calcium Level 9.1 8.5-10.1 MG/DL Corrected Calcium 9.2 8.5-10.1 MG/DL Total Bilirubin 0.6 0.1-1.0 MG/DL Aspartate Amino Transf (AST/SGOT) 20 5-34 U/L Alanine Aminotransferase (ALT/SGPT) 19 0-55 U/L Alkaline Phosphatase 85 40-136 U/L Total Protein 6.8 6.4-8.2 GM/DL Albumin 3.9 3.2-4.5 GM/DL My Orders Orders - JENNI BORDEN MD Cbc With Automated Diff (10/21/22 05:20) Comprehensive Metabolic Panel (10/21/22 05:20) Ed Iv/Invasive Line Start (10/21/22 05:20) Lactic Acid Analyzer (10/21/22 05:20) Ns Iv 1000 Ml (Sodium Chloride 0.9%) (10/21/22 05:30) Clindamycin 900 Mg/50 Ml Ivpb (Cleocin P (10/21/22 05:30) Ketorolac Injection (Toradol Injection) (10/21/22 05:30) Diphenhydramine Injection (Benadryl Inje (10/21/22 05:30) Manual Differential (10/21/22 05:20) Medications Given in ED Current Medications Medications Dose Ordered Sig/Rivas Route Start Time Stop Time Status Last Admin Dose Admin Clindamycin Phosphate/Dextrose 50 ml @ 100 mls/hr ONCE ONCE IV 10/21/22 05:30 10/21/22 05:59 DC 10/21/22 05:32 100 MLS/HR Diphenhydramine HCl 25 mg ONCE ONCE IVP 10/21/22 05:30 10/21/22 05:32 DC 10/21/22 05:31 25 MG Ketorolac Tromethamine 30 mg ONCE ONCE IVP 10/21/22 05:30 10/21/22 05:32 DC 10/21/22 05:32 30 MG Vital Signs/I&O 10/21/22 10/21/22 05:13 06:38 Temp 37.9 37.9 Pulse 104 104 Resp 18 18 B/P (MAP) 137/82 (100) 137/82 Pulse Ox 99 99 O2 Delivery Room Air Room Air Capillary Refill : Less Than 3 Seconds Blood Pressure Mean: 100 Progress Note : Progress Note 32-year-old female patient with area of erythema on left axillary area since yesterday morning that did not get better with taking 1 dose of Bactrim given at the urgent care. Patient had temperature of 100.3 at arrival to ER. CBC and CMP and lactic acid was ordered and reviewed by me. Patient had unremarkable CBC and CMP and lactic acid except for blood sugar of 140 and advised to follow- up with primary care physician for recheck her fasting blood sugar. Patient treated with IV fluid, Toradol, clindamycin and Benadryl and felt better. Patient advised to continue Bactrim. Prescription for [place] and Bactroban was given. Departure Impression Primary Impression: Cellulitis Additional Impression: Elevated fasting blood sugar Disposition: 01 HOME, SELF-CARE Condition: Improved Departure-Patient Inst. Decision time for Depature: 06:34 Referrals: LUIS DIEGO APRN (PCP) Primary Care Physician NAVYA ADAM DO (Family) Primary Care Physician Patient Instructions: Cellulitis (Skin Infection), Adult ED Add. Discharge Instructions: Continue home Bactrim Follow-up with your primary care physician for recheck of blood sugar Return to ER as needed All discharge instructions reviewed with patient and/or family. Voiced understanding. Scripts Mupirocin (Mupirocin) 2 % Oin.pf.deborah 1 GM TP BID for skin infection, #1 TUBE Prov: JENNI BORDEN MD 10/21/22 Hydrocodone/Acetaminophen (Hydrocodone-Acetamin 5-325 mg) 5 Mg-325 Mg Tablet 1 TAB PO Q6H PRN for PAIN-MODERATE (5-7), #10 TAB Prov: JENNI BORDEN MD 10/21/22 JENNI BORDEN MD Oct 21, 2022 05:42
[2022-10-21 05:57] LABS: BAND NEUTROPHILS 10 %; EOSINOPHILS % (MANUAL) 4 %; LYMPHOCYTES % (MANUAL) 2 %; MONOCYTES % (MANUAL) 3 %; NEUTROPHILS % (MANUAL) 79 %; PLATELET ESTIMATE NORMAL; RBC MORPH NORMAL; REACTIVE LYMPHOCYTES 2 %
[2022-10-21 06:10] LABS: BILIRUBIN,TOTAL 0.6 MG/DL (0.1-1.0); CALCIUM 9.1 MG/DL (8.5-10.1); CREATININE SERUM 0.85 MG/DL (0.60-1.30); POTASSIUM 3.6 MMOL/L (3.6-5.0)
[2022-10-21 06:11] LABS: ALBUMIN 3.9 GM/DL (3.2-4.5); TOTAL PROTEIN 6.8 GM/DL (6.4-8.2)
[2022-10-21] MEDS ORDERED: ACHD5005 PO (06:35)
[2022-10-21 06:38] VITALS: BP 137/82
[2022-10-21] MEDS ORDERED: MUPI1OIN6 TP (06:38)
[2022-10-22] MEDS ORDERED: CLIN-144 PO (14:02)
== END 2022-10-21 06:39 | disposition home or self-care (01) ==
LOC: EDUNIT# 05:09 → ER FS 05:11
DX: L03.112 Cellulitis of left axilla (principal); R73.9 Hyperglycemia, unspecified; Z88.0 Allergy status to penicillin; Z28.310 Unvaccinated for COVID-19
CPT/HCPCS: 36415; 80053; 83605; 85007; 85027

== ENCOUNTER 2022-10-22 11:35 | Emergency (ER) | payer OTHER ==
[~2022-10-22] VITALS: Ht 162 cm; Wt 92.0 kg
[~2022-10-22 11:35] MED LIST changes: +ACHD5005 PO; +MUPI1OIN6 TP
--- NOTE | 2022-10-22 12:09 | ED Integumentary General ---
General Chief Complaint: Skin/Wound Problems Stated Complaint: SPIDER BITE ON 10/20/2022 Nursing Triage Note: PT HAS WOUND ON L OUTER UNDER ARM. PT HAS POSSIBLE BEEN BITTEN BY AN INSECT. PT WAS SEEN IN ED, AND SEEN BY PCP PT IS CURRENTLY ON BACTRIM DS, HYDROCODONE, AND MUPERICIN. Source: patient Exam Limitations: no limitations History of Present Illness Date Seen by Provider: Oct 22, 2022 Time Seen by Provider: 12:06 Initial Comments Patient is a 32-year-old female presents the ED with a wound to her left inner upper arm. She states she may have been bitten by a spider or insect on Thursday. Noted a small lump and had increased redness and swelling. She states she went to her primary care physician and was placed on Bactrim. She had incision and drainage with small amount of bloody drainage. Increased redness since Thursday. Was seen in the ER yesterday for fever, malaise and weakness. She was given IV clindamycin with lab work. It was recommended to follow-up with her primary care physician. She is concern for the increased redness and swelling today. She is currently on hydrocodone and mupricin. She has taken 3 days worth of Bactrim. Patient denies any fever today. Continued nausea malaise and weakness. She is up-to-date on her tetanus. Allergies and Home Medications Allergies Coded Allergies: Penicillins (Verified Allergy, Unknown, RASH, 09/03/16) Patient Home Medication List Home Medication List Reviewed: Yes Clindamycin HCl (Clindamycin HCl) 300 Mg Capsule, 300 MG PO QID Prescribed by: DEVEN FISHER on 10/22/22 1402 Docusate Sodium (Docusate Sodium) 100 Mg Capsule, 100 MG PO BID Prescribed by: ADALBERTO MORLEY on 09/05/16 0812 Folic Acid (Folic Acid) 20 Mg Capsule, 20 MG PO DAILY, (Reported) Entered as Reported by: MARGO HEMPHILL on 09/03/16 1035 Hydrocodone/Acetaminophen (Hydrocodone-Acetamin 5-325 mg) 5 Mg-325 Mg Tablet, 1 TAB PO Q6H PRN for PAIN-MODERATE (5-7) Prescribed by: Jenni manning on 10/21/22 0636 Ibuprofen (Ibuprofen) 800 Mg Tablet, 800 MG PO Q6HR Prescribed by: ADALBERTO MORLEY on 09/05/16 0812 Medroxyprogesterone Acetate (Medroxyprogesterone Acetate) 10 Mg Tablet, 10 MG PO DAILY Prescribed by: KAITLIN CABRAL on 12/28/19 1215 Multivitamin (Flintstones) 1 Each Tab.chew, 1 EACH PO DAILY, (Reported) Entered as Reported by: MARGO HEMPHILL on 09/03/16 1035 Mupirocin (Mupirocin) 2 % Oin.pf.deborah, 1 GM TP BID Prescribed by: Jenni manning on 10/21/22 0638 Oxycodone HCl/Acetaminophen (Oxycodone-Acetaminophen 5-325) 1 Each Tablet, 1-2 TAB PO Q3H PRN for PAIN-MODERATE Prescribed by: ADALBERTO MORLEY on 09/05/16 0812 Sertraline HCl (Zoloft) 25 Mg Tablet, 25 MG PO DAILY, (Reported) Entered as Reported by: MARGO HEMPHILL on 09/03/16 1035 Review of Systems Review of Systems Constitutional: No chills, No diaphoresis; fever, malaise, weakness EENTM: No hearing loss, No ear pain, No blurred vision Respiratory: No cough, No dyspnea on exertion Cardiovascular: No chest pain Gastrointestinal: No abdominal pain, No diarrhea, No nausea, No vomiting Genitourinary: No decreased output Musculoskeletal: No back pain, No joint pain, No joint swelling, No muscle pain Skin: change in color All Other Systems Reviewed Negative Unless Noted: Yes Past Ignjign-Fseggj-Fwzrxm Hx Patient Social History Tobacco Use?: Yes Tobacco type used: Cigarettes Smoking Status: Current Someday Smoker Substance use?: No Alcohol Use?: Yes Alcohol type: Beer Alcohol Frequency: Once in a while Pt feels they are or have been: No Immunizations Up To Date Tetanus Booster (TDap): Less than 5yrs PED Vaccines UTD: Yes Seasonal Allergies Seasonal Allergies: Yes Past Medical History Surgery/Hospitalization HX: Surgeries: Yes Section Respiratory: No Cardiac: No Neurological: No Female Reproductive Disorders: Polycystic Ovarian Dis Sexually Transmitted Disease: No HIV/AIDS: No Genitourinary: No Gastrointestinal: No Musculoskeletal: No Endocrine: No HEENT: No Cancer: No Psychosocial: Yes Anxiety Integumentary: No Blood Disorders: No Adverse Reaction/Blood Tranf: No Family Medical History Cardiovascular disease 19 FATHER Hypertension 19 FATHER 19 MOTHER Physical Exam Vital Signs Vital Signs - First Documented 10/22/22 11:40 Temp 36.8 Pulse 77 Resp 16 B/P (MAP) 131/94 (106) Pulse Ox 98 Capillary Refill : Less Than 3 Seconds General Appearance: WD/WN, no apparent distress HEENT: PERRL/EOMI, normal ENT inspection, TMs normal, pharynx normal Neck: non-tender, full range of motion, supple Cardiovascular: regular rate, rhythm, no edema, no gallop, no JVD Respiratory: chest non-tender, lungs clear, normal breath sounds, no respiratory distress, no accessory muscle use Gastrointestinal: normal bowel sounds, non tender, soft, no organomegaly Back: normal inspection, no CVA tenderness, no vertebral tenderness Extremities: swelling, other (Erythema to left upper arm) Neurologic/Psychiatric: 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 No fluctuant mass. No active drainage.) Progress/Results/Core Measures Results/Orders Lab Results Laboratory Tests Test 10/22/22 12:05 Range/Units White Blood Count 5.9 4.3-11.0 10^3/uL Red Blood Count 4.23 3.80-5.11 10^6/uL Hemoglobin 14.0 11.5-16.0 g/dL Hematocrit 39 35-52 % Mean Corpuscular Volume 93 80-99 fL Mean Corpuscular Hemoglobin 33 25-34 pg Mean Corpuscular Hemoglobin Concent 36 32-36 g/dL Red Cell Distribution Width 12.4 10.0-14.5 % Platelet Count 137 130-400 10^3/uL Mean Platelet Volume 12.3 H 9.0-12.2 fL Immature Granulocyte % (Auto) 0 % Neutrophils (%) (Auto) 68 42-75 % Lymphocytes (%) (Auto) 15 12-44 % Monocytes (%) (Auto) 6 0-12 % Eosinophils (%) (Auto) 11 H 0-10 % Basophils (%) (Auto) 0 0-10 % Neutrophils # (Auto) 4.0 1.8-7.8 10^3/uL Lymphocytes # (Auto) 0.9 L 1.0-4.0 10^3/uL Monocytes # (Auto) 0.4 0.0-1.0 10^3/uL Eosinophils # (Auto) 0.6 H 0.0-0.3 10^3/uL Basophils # (Auto) 0.0 0.0-0.1 10^3/uL Immature Granulocyte # (Auto) 0.0 0.0-0.1 10^3/uL Erythrocyte Sedimentation Rate 16 0-20 MM/HR Sodium Level 136 135-145 MMOL/L Potassium Level 3.4 L 3.6-5.0 MMOL/L Chloride Level 107 98-107 MMOL/L Carbon Dioxide Level 21 21-32 MMOL/L Anion Gap 8 5-14 MMOL/L Blood Urea Nitrogen 6 L 7-18 MG/DL Creatinine 0.79 0.60-1.30 MG/DL Estimat Glomerular Filtration Rate 101 BUN/Creatinine Ratio 8 Glucose Level 122 H 70-105 MG/DL Calcium Level 8.3 L 8.5-10.1 MG/DL Corrected Calcium 8.6 8.5-10.1 MG/DL Total Bilirubin 0.2 0.1-1.0 MG/DL Aspartate Amino Transf (AST/SGOT) 93 H 5-34 U/L Alanine Aminotransferase (ALT/SGPT) 87 H 0-55 U/L Alkaline Phosphatase 102 40-136 U/L C-Reactive Protein High Sensitivity 11.79 H 0.00-0.50 MG/DL Total Protein 6.3 L 6.4-8.2 GM/DL Albumin 3.6 3.2-4.5 GM/DL My Orders Orders - JULIETA LUNDY Cbc With Automated Diff (10/22/22 12:01) Comprehensive Metabolic Panel (10/22/22 12:01) Erythrocyte Sedimentation Rate (10/22/22 12:01) Hs C Reactive Protein (10/22/22 12:01) Clindamycin 600 Mg/50 Ml Ivpb (Cleocin P (10/22/22 12:15) Vancomycin Injection (Vancomycin Injecti (10/22/22 12:15) Blood Culture (10/22/22 12:04) Fentanyl Inj (Sublimaze Injection) (10/22/22 13:58) Medications Given in ED Current Medications Medications Dose Ordered Sig/Rivas Route Start Time Stop Time Status Last Admin Dose Admin Vancomycin HCl 1000 mg/Sodium Chloride 250 ml @ 250 mls/hr ONCE ONCE IV 10/22/22 12:15 10/22/22 13:14 DC 10/22/22 12:41 250 MLS/HR Vital Signs/I&O 10/22/22 11:40 Temp 36.8 Pulse 77 Resp 16 B/P (MAP) 131/94 (106) Pulse Ox 98 Blood Pressure Mean: 106 Departure Communication (PCP) Patient presents the ED with left upper arm swelling and redness. This is her third or fourth visit for this. This started on Thursday with a small red bump with the bruising. Attempted I&D by her primary care physician with bloody drainage. Was placed on Bactrim. Has been applying topical mupirocin. Was seen in the ER yesterday with reassuring lab work lactic acid and received 1 dose of IV clindamycin. She reports today as the redness has spread. It has spread about 1 inch outward. No evidence of a abscess. Very small induration. Do not necessarily believe it needs incision and drainage. Appears to be more secondary to a localized reaction from a potential spider or bug bite however due to continued redness and swelling patient was given a dose of vancomycin 1 g and had lab work drawn with blood cultures. CBC was grossly unremarkable. Only change was a slight elevated AST of 93 ALT of 97. Her CRP was 11. She is afebrile. Stable vital signs. Differential diagnosis cellulitis or localized reaction to bite. Denies history of MRSA. Due to the increased redness and swelling switch Bactrim to clindamycin. stop bactrim. She is allergic to penicillins. Elevated liver enzymes could be secondary to the infection versus inflammatory response. I discussed following up tomorrow for recheck of liver enzymes and reevaluation of her arm with her primary care physician. If increased redness or swelling down the arm with fever patient will likely require admission with IV antibiotics with general surgery consult Impression Primary Impression: Cellulitis Disposition: 01 HOME, SELF-CARE Condition: Stable Departure-Patient Inst. Decision time for Depature: 13:28 Referrals: LUIS DIEGO APRN (PCP) Primary Care Physician NAVYA ADAM DO (Family) Primary Care Physician Patient Instructions: Cellulitis (Skin Infection), Adult ED Add. Discharge Instructions: Recommend following up with your primary care physician tomorrow for recheck of wound. Take clindamycin as prescribed. Recommend recheck of your lab work. Slight elevated AST 93 AFT 87 today liver enzymes. Return back to ED if symptoms worsen. All discharge instructions reviewed with patient and/or family. Voiced understanding. Scripts Clindamycin HCl (Clindamycin HCl) 300 Mg Capsule 300 MG PO QID for 7 Days, #28 CAP Prov: JULIETA LUNDY 10/22/22 JULIETA LUNDY Oct 22, 2022 12:09
[2022-10-22 12:13] LABS: BASOPHILS % (AUTO) 0 % (0-10); EOSINOPHILS # (AUTO) 0.6 10^3/uL (0.0-0.3); EOSINOPHILS % (AUTO) 11 % (0-10); HEMATOCRIT 39 % (35-52); LYMPHOCYTES # (AUTO) 0.9 10^3/uL (1.0-4.0); LYMPHOCYTES % (AUTO) 15 % (12-44); MEAN CORPUSCULAR HEMOGLOBIN 33 pg (25-34); MEAN CORPUSCULAR HGB CONC 36 g/dL (32-36); MEAN CORPUSCULAR VOLUME 93 fL (80-99); MEAN PLATELET VOLUME 12.3 fL (9.0-12.2); MONOCYTES # (AUTO) 0.4 10^3/uL (0.0-1.0); MONOCYTES % (AUTO) 6 % (0-12); NEUTROPHILS % (AUTO) 68 % (42-75); PLATELET COUNT 137 10^3/uL (130-400); WHITE BLOOD COUNT 5.9 10^3/uL (4.3-11.0)
[2022-10-22] MEDS ORDERED: CLINDAMYCIN 600 MG/50 ML IVPB 50 ML IV ONE (12:15)
[2022-10-22] MEDS ORDERED: VANCOMYCIN INJECTION 1,000 MG in NS (IVPB) 250 ML IV ONE (12:15)
[2022-10-22 12:23] LABS: ALBUMIN 3.6 GM/DL (3.2-4.5)
[2022-10-22 12:24] LABS: POTASSIUM 3.4 MMOL/L (3.6-5.0)
[2022-10-22 12:25] LABS: CALCIUM 8.3 MG/DL (8.5-10.1)
[2022-10-22 12:26] LABS: TOTAL PROTEIN 6.3 GM/DL (6.4-8.2)
[2022-10-22 12:28] LABS: BILIRUBIN,TOTAL 0.2 MG/DL (0.1-1.0)
[2022-10-22 12:30] LABS: CREATININE SERUM 0.79 MG/DL (0.60-1.30)
[2022-10-22 12:40] LABS: ERYTHROCYTE SEDIMENTATION RATE 16 MM/HR (0-20)
[2022-10-22] MEDS ORDERED: fentaNYL INJ 100 MCG/2 ML AMP IVP STA (13:58)
[2022-10-22] MEDS ORDERED: CLIN-144 PO (14:02)
[2022-10-22 14:27] VITALS: BP 122/72
== END 2022-10-22 14:27 | disposition home or self-care (01) ==
LOC: EDUNIT# 11:35 → ER 11:38
DX: L03.114 Cellulitis of left upper limb (principal); F17.210 Nicotine dependence, cigarettes, uncomplicated; Z88.0 Allergy status to penicillin
CPT/HCPCS: 36415; 80053; 85025; 85652; 86141; 87040

== ENCOUNTER 2022-10-23 17:35 | Inpatient (IN) | payer OTHER ==
[~2022-10-23] VITALS: Ht 162.7 cm; Wt 93.4 kg
[~2022-10-23 17:35] MED LIST changes: +CLIN-144 PO
[2022-10-23] MEDS ORDERED: KETOROLAC 30 MG/ML VIAL IVP ONE (19:30)
[2022-10-23] MEDS ORDERED: ONDANSETRON 4 MG/2 ML (SDV) Z0FRAN IVP ONE (19:30)
--- NOTE | 2022-10-23 19:33 | ED General ---
General Chief Complaint: Bite-Animal/Human/Insect Stated Complaint: SPIDER BITE LEFT ARM Nursing Triage Note: PT ARRIVED WITH IV FROM PCP FOR ABX FOR SPIDER BITE ON LT ARM, PT WAS SEEN HERE FOR THE SAME YESTERDAY Source of Information: Patient, Old Records Exam Limitations: No Limitations History of Present Illness Date Seen by Provider: Oct 23, 2022 Time Seen by Provider: 18:41 Initial Comments This 32-year-old young lady presents to the emergency room with complaints of rapidly progressing pain, erythema, and swelling of the underside of the left upper arm. Symptoms started on October 20. [place] noticed a bruised appearing painful spot on the superior portion of the left axilla on the . This area rapidly became erythematous and spread. She has since had 2 visits to the clinic in 2 visits to the emergency room. She was initially placed on Bactrim. That was later changed to clindamycin. She also was given Bactroban to use topically. She continues to worsen despite these treatments. She reports a fever at home today of 102.1. She attempted taking Tylenol and ibuprofen, but immediately vomited the tablets. She also notes a diffuse macular papillary rash that developed today. This rash is most prominent around her face and neck. It is not pruritic. She has had other symptoms that include headache, chills, fatigue/malaise, and myalgia. She has relatively little health history. She has PCOS and seasonal allergies. Mild hyperglycemia was noted on her prior labs. Upon my review of her prior labs, she has had a slight upward trend in transaminases and a slight downward trend in her platelets. This lab trend along with elevated CRP and development of rash brings presence of tickborne disease into question. She has not yet had a tick panel performed. She is not aware of any tick bites. The spot where the inflammation started now has an eschared center measuring less than 1 cm in diameter at the superior aspect of the left axilla. There is dusky ecchymotic appearing skin surrounding this spot. Allergies and Home Medications Allergies Coded Allergies: Penicillins (Verified Allergy, Unknown, RASH, 09/03/16) Patient Home Medication List Home Medication List Reviewed: Yes Clindamycin HCl (Clindamycin HCl) 300 Mg Capsule, 300 MG PO QID Prescribed by: DEVEN FISHER on 10/22/22 1402 Docusate Sodium (Docusate Sodium) 100 Mg Capsule, 100 MG PO BID Prescribed by: ADALBERTO MORLEY on 09/05/16 0812 Folic Acid (Folic Acid) 20 Mg Capsule, 20 MG PO DAILY, (Reported) Entered as Reported by: MARGO HEMPHILL on 09/03/16 1035 Hydrocodone/Acetaminophen (Hydrocodone-Acetamin 5-325 mg) 5 Mg-325 Mg Tablet, 1 TAB PO Q6H PRN for PAIN-MODERATE (5-7) Prescribed by: Jenni manning on 10/21/22 0636 Ibuprofen (Ibuprofen) 800 Mg Tablet, 800 MG PO Q6HR Prescribed by: ADALBERTO MORLEY on 09/05/16 0812 Medroxyprogesterone Acetate (Medroxyprogesterone Acetate) 10 Mg Tablet, 10 MG PO DAILY Prescribed by: KAITLIN CABRAL on 12/28/19 1215 Multivitamin (Flintstones) 1 Each Tab.chew, 1 EACH PO DAILY, (Reported) Entered as Reported by: MARGO HEMPHILL on 09/03/16 1035 Mupirocin (Mupirocin) 2 % Oin.pf.deborah, 1 GM TP BID Prescribed by: Jenni manning on 10/21/22 0638 Oxycodone HCl/Acetaminophen (Oxycodone-Acetaminophen 5-325) 1 Each Tablet, 1-2 TAB PO Q3H PRN for PAIN-MODERATE Prescribed by: ADALBERTO MORLEY on 09/05/16 0812 Sertraline HCl (Zoloft) 25 Mg Tablet, 25 MG PO DAILY, (Reported) Entered as Reported by: MARGO HEMPHILL on 09/03/16 1035 Review of Systems Review of Systems Constitutional: no symptoms reported EENTM: no symptoms reported Respiratory: no symptoms reported Cardiovascular: no symptoms reported Gastrointestinal: see HPI Genitourinary: no symptoms reported : No Musculoskeletal: see HPI Skin: see HPI Psychiatric/Neurological: See HPI Hematologic/Lymphatic: See HPI Immunological/Allergic: no symptoms reported Past Dbamtrg-[id number]-Ojxssd Hx Patient Social History Tobacco Use?: Yes Tobacco type used: Cigarettes Smoking Status: Current Someday Smoker Substance use?: No Alcohol Use?: Yes Alcohol Frequency: Once in a while Immunizations Up To Date Tetanus Booster (TDap): Less than 5yrs PED Vaccines UTD: Yes First/Initial COVID19 Vaccinat: NO Seasonal Allergies Seasonal Allergies: Yes Past Medical History Surgery/Hospitalization HX: Surgeries: Yes Section Respiratory: No Cardiac: No Neurological: No : No Last Menstrual Period: September 26, 2022 Reproductive Disorders: Yes Female Reproductive Disorders: Polycystic Ovarian Dis Sexually Transmitted Disease: No HIV/AIDS: No Genitourinary: No Gastrointestinal: No Musculoskeletal: No Endocrine: No HEENT: No Cancer: No Psychosocial: Yes Anxiety Integumentary: No Blood Disorders: No Adverse Reaction/Blood Tranf: No Family Medical History Cardiovascular disease 19 FATHER Hypertension 19 FATHER 19 MOTHER Physical Exam-Suspected Sepsis Physical Exam Vital Signs Vital Signs - First Documented 10/23/22 17:42 Temp 36.9 Pulse 73 Resp 20 B/P (MAP) 132/80 (97) Pulse Ox 100 O2 Delivery Room Air Capillary Refill : Less Than 3 Seconds Blood Pressure Mean: 97 Height, Weight, BMI Height: 5'4.00" Weight: 259lbs. 0.0oz. 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 There is a eschared area near the axilla less than 1 cm in diameter. There is patchy ecchymotic skin near this eschar. No overt lymph adenopathy or fluctuance is noted. There is no active drainage.) Focused Exam Lactate Level 10/23/22 18:15: Lactic Acid Level 0.97 Lactic Acid Level Laboratory Tests Test 10/23/22 18:15 Lactic Acid Level 0.97 MMOL/L (0.50-2.00) Progress/Results/Core Measures Suspected Sepsis SIRS Temperature: Pulse: 73 Respiratory Rate: 20 Laboratory Tests 10/23/22 18:15: White Blood Count 9.2 Blood Pressure 132 /80 Mean: 97 10/23/22 18:15: Lactic Acid Level 0.97 Laboratory Tests 10/23/22 18:15: Creatinine 0.80, INR Comment 0.9, Platelet Count 155, Total Bilirubin 0.2 Results/Orders Lab Results Laboratory Tests Test 10/23/22 18:15 10/23/22 19:52 Range/Units White Blood Count 9.2 4.3-11.0 10^3/uL Red Blood Count 4.14 3.80-5.11 10^6/uL Hemoglobin 13.1 11.5-16.0 g/dL Hematocrit 39 35-52 % Mean Corpuscular Volume 95 80-99 fL Mean Corpuscular Hemoglobin 32 25-34 pg Mean Corpuscular Hemoglobin Concent 33 32-36 g/dL Red Cell Distribution Width 12.7 10.0-14.5 % Platelet Count 155 130-400 10^3/uL Mean Platelet Volume 13.0 H 9.0-12.2 fL Immature Granulocyte % (Auto) 0 % Neutrophils (%) (Auto) 77 H 42-75 % Lymphocytes (%) (Auto) 10 L 12-44 % Monocytes (%) (Auto) 4 0-12 % Eosinophils (%) (Auto) 8 0-10 % Basophils (%) (Auto) 0 0-10 % Neutrophils # (Auto) 7.1 1.8-7.8 10^3/uL Lymphocytes # (Auto) 0.9 L 1.0-4.0 10^3/uL Monocytes # (Auto) 0.4 0.0-1.0 10^3/uL Eosinophils # (Auto) 0.7 H 0.0-0.3 10^3/uL Basophils # (Auto) 0.0 0.0-0.1 10^3/uL Immature Granulocyte # (Auto) 0.0 0.0-0.1 10^3/uL Erythrocyte Sedimentation Rate 23 H 0-20 MM/HR Prothrombin Time 12.5 12.2-14.7 SEC INR Comment 0.9 0.8-1.4 Activated Partial Thromboplast Time 27 24-35 SEC Sodium Level 138 135-145 MMOL/L Potassium Level 3.4 L 3.6-5.0 MMOL/L Chloride Level 108 H 98-107 MMOL/L Carbon Dioxide Level 21 21-32 MMOL/L Anion Gap 9 5-14 MMOL/L Blood Urea Nitrogen 5 L 7-18 MG/DL Creatinine 0.80 0.60-1.30 MG/DL Estimat Glomerular Filtration Rate 100 BUN/Creatinine Ratio 6 Glucose Level 113 H 70-105 MG/DL Lactic Acid Level 0.97 0.50-2.00 MMOL/L Calcium Level 8.6 8.5-10.1 MG/DL Corrected Calcium 8.8 8.5-10.1 MG/DL Total Bilirubin 0.2 0.1-1.0 MG/DL Aspartate Amino Transf (AST/SGOT) 63 H 5-34 U/L Alanine Aminotransferase (ALT/SGPT) 96 H 0-55 U/L Alkaline Phosphatase 115 40-136 U/L C-Reactive Protein High Sensitivity 5.83 H 0.00-0.50 MG/DL Total Protein 6.6 6.4-8.2 GM/DL Albumin 3.7 3.2-4.5 GM/DL Serum Test, Qualitative NEGATIVE NEGATIVE My Orders Orders - EVETTE FIELDS MD Cbc With Automated Diff (10/23/22:) Comprehensive Metabolic Panel (10/23/22:) Blood Culture (10/23/22:30) Protime With Inr (10/23/22:) Partial Thromboplastin Time (10/23/22 19:30) Ed Iv/Invasive Line Start (10/23/22:30) Vital Signs Adult Sepsis Patie Q15M (10/23/22:30) Remove Rings In Anticipation O (10/23/22:30) Lactic Acid Analyzer (10/23/22:30) Hs C Reactive Protein (10/23/22:30) Hcg,Qualitative Serum (10/23/22:) Erythrocyte Sedimentation Rate (10/23/22:30) Tick Panel Without Lyme (10/23/22:30) Ondansetron Injection (Zofran Injectio (10/23/22 19:30) Ketorolac Injection (Toradol Injection) (10/23/22 19:30) Ceftriaxone Iv/Im (Rocephin Iv/Im) (10/23/22 20:58) Doxycycline Injection (Vibramycin Inject (10/23/22 21:00) Dapsone Tablet (Dapsone Tablet) (10/23/22 20:58) Fentanyl Inj (Sublimaze Injection) (10/23/22 21:00) Dipht,Pertuss(Acell),Tet Adult (Boostrix (10/23/22 21:15) Medications Given in ED Current Medications Medications Dose Ordered Sig/Rivas Route Start Time Stop Time Status Last Admin Dose Admin Ketorolac Tromethamine 30 mg ONCE ONCE IVP 10/23/22 19:30 10/23/22 19:33 DC 10/23/22 20:09 30 MG Ondansetron HCl 8 mg ONCE ONCE IVP 10/23/22 19:30 10/23/22 19:33 DC 10/23/22 20:09 8 MG Vital Signs/I&O 10/23/22 17:42 Temp 36.9 Pulse 73 Resp 20 B/P (MAP) 132/80 (97) Pulse Ox 100 O2 Delivery Room Air Capillary Refill : Less Than 3 Seconds Blood Pressure Mean: 97 Progress Note : Time: 21:20 Progress Note Patient was interviewed and examined. Labs from prior visits were reviewed. Repeat labs were obtained including CBC, CMP, CRP, and ESR. Blood cultures and lactic acid were also obtained. The trend of increasing transaminases and decreasing platelets seems to have resolved today. CRP also dropped from 11 to 5.8. Patient is no longer febrile but was febrile at home today. Despite the stability of her labs at this time, overall she seems to be worsening subjectively with continued systemic symptoms and progression of the erythema, pain, and swelling on her arm. Additionally, she now has a diffuse rash which she did not have before. There is concern for tickborne disease, and a tick panel has been collected and is pending. Blood cultures were collected again. There was no significant hyperglycemia. Renal function was normal. Serum test was negative. Lactic acid was normal. All labs were reviewed and interpreted by me and compared with her prior to ER visits. Pain was treated with Toradol followed by fentanyl. Nausea was treated with Zofran. Patient was offered admission to which she was agreeable. I discussed the case with Dr. Bennett, general surgeon on-call. We agreed upon a treatment regimen that would include doxycycline for possible tickborne disease, Rocephin for cellulitis, and dapsone for possible spider bite. The exact etiology is uncertain at this time. She has mixed features that could be related to any of these pathologies. I also discussed with Dr. Wang, admitting hospitalist, who accepted the admission. Departure Communication (Admissions) Time/Spoke to Admitting Phy: 21:05 Dr. Wang Time/Spoke to Consulting Phy: 21:00 Dr. Bennett Impression Primary Impression: Cellulitis Qualified Codes: L03.114 - Cellulitis of left upper limb Disposition: ADMITTED INPATIENT Condition: Stable Admissions Decision to Admit Reason: Admit from ER (General) Decision to Admit/Date: Oct 23, 2022 Time/Decision to Admit Time: 21:00 Departure-Patient Inst. Referrals: LUIS DIEGO APRN (PCP) Primary Care Physician NAVYA ADAM DO (Family) Primary Care Physician EVETTE FIELDS MD Oct 23, 2022 19:33
[2022-10-23 19:44] LABS: BASOPHILS % (AUTO) 0 % (0-10); EOSINOPHILS # (AUTO) 0.7 10^3/uL (0.0-0.3); EOSINOPHILS % (AUTO) 8 % (0-10); HEMATOCRIT 39 % (35-52); HEMOGLOBIN 13.1 g/dL (11.5-16.0); LYMPHOCYTES # (AUTO) 0.9 10^3/uL (1.0-4.0); LYMPHOCYTES % (AUTO) 10 % (12-44); MEAN CORPUSCULAR HEMOGLOBIN 32 pg (25-34); MEAN CORPUSCULAR HGB CONC 33 g/dL (32-36); MEAN CORPUSCULAR VOLUME 95 fL (80-99); MONOCYTES # (AUTO) 0.4 10^3/uL (0.0-1.0); MONOCYTES % (AUTO) 4 % (0-12); NEUTROPHILS # (AUTO) 7.1 10^3/uL (1.8-7.8); NEUTROPHILS % (AUTO) 77 % (42-75); PLATELET COUNT 155 10^3/uL (130-400); WHITE BLOOD COUNT 9.2 10^3/uL (4.3-11.0)
[2022-10-23 19:50] LABS: ALBUMIN 3.7 GM/DL (3.2-4.5)
[2022-10-23 19:51] LABS: POTASSIUM 3.4 MMOL/L (3.6-5.0)
[2022-10-23 19:52] LABS: CALCIUM 8.6 MG/DL (8.5-10.1)
[2022-10-23 19:53] LABS: INR 0.9 (0.8-1.4); PROTHROMBIN TIME PATIENT 12.5 SEC (12.2-14.7); TOTAL PROTEIN 6.6 GM/DL (6.4-8.2)
[2022-10-23 19:55] LABS: BILIRUBIN,TOTAL 0.2 MG/DL (0.1-1.0)
[2022-10-23 20:05] LABS: ERYTHROCYTE SEDIMENTATION RATE 23 MM/HR (0-20)
[2022-10-23 20:19] LABS: CREATININE SERUM 0.8 MG/DL (0.60-1.30)
[2022-10-23] MEDS ORDERED: cefTRIAXone IV/IM 1,000 MG in NS (IVPB) 50 ML IV STA (20:58)
[2022-10-23] MEDS ORDERED: DAPSONE 100 MG TABLET PO STA (20:58)
[2022-10-23] MEDS ORDERED: DOXYCYCLINE INJECTION 100 MG in NS (IVPB) 100 ML IV ONE (21:00)
[2022-10-23] MEDS ORDERED: fentaNYL INJ 100 MCG/2 ML AMP IVP ONE (21:00)
[2022-10-23] MEDS ORDERED: TETANUS,DIPTH,PERTUSS P/F (BOOSTRIX) 0.5 ML VIAL IM ONE (21:15)
[2022-10-23] MEDS ORDERED: LACTULOSE SYRUP 10GM/15ML (ENULOSE) 30ML UDC PO PRN (21:30)
[2022-10-23] MEDS ORDERED: polyethylene glycoL POWDER 17 GM (MIRALAX) PACK PO PRN (21:30)
[2022-10-23] MEDS ORDERED: MELATONIN 3 MG TABLET PO PRN (21:30)
[2022-10-23] MEDS ORDERED: MILK OF MAGNESIA 400 MG/5 ML 30 ML UDC PO PRN (21:30)
[2022-10-23] MEDS ORDERED: ONDANSETRON 4 MG (ZOFRAN) ORAL DISSOLVE TAB PO PRN (21:30)
[2022-10-23] MEDS ORDERED: CALCIUM CARBONATE 500 MG (TUMS) TAB.CHEW PO PRN (21:30)
[2022-10-23] MEDS ORDERED: ACETAMINOPHEN 325 MG TABLET PO PRN (21:30)
[2022-10-23] MEDS ORDERED: ANTACID SUSP 30 ML UDC (MYLANTA) PO PRN (21:30)
[2022-10-23] MEDS ORDERED: BISACODYL 10 MG SUPP (DULCOLAX) PR PRN (21:30)
[2022-10-23] MEDS: ENOXAPARIN 40 MG/0.4 ML (LOVENOX) SYR SC SCH (22:18)
[2022-10-23] MEDS: NS IV 1000 ML 1,000 ML IV SCH (22:18)
[2022-10-23 22:23] VITALS: BP 113/71
[2022-10-23 23:07] VITALS: BP 135/87
[2022-10-24] MEDS: HYDROmorphone 2 MG/ML VIAL (DILAUDID) IV PRN ×6 (01:29→20:38)
[2022-10-24 03:18] VITALS: BP 118/78
[2022-10-24] MEDS: diphenhydrAMINE 25 MG TAB (BENADRYL) PO PRN ×2 (03:27→19:52)
[2022-10-24] MEDS: diphenhydrAMINE 50 MG/ML INJ (BENADRYL) IVP PRN ×3 (05:37→21:05)
[2022-10-24] MEDS: ONDANSETRON 4 MG/2 ML (SDV) Z0FRAN IV PRN ×2 (05:40→11:55)
[2022-10-24 06:18] LABS: BASOPHILS % (AUTO) 0 % (0-10); EOSINOPHILS # (AUTO) 0.3 10^3/uL (0.0-0.3); EOSINOPHILS % (AUTO) 2 % (0-10); HEMATOCRIT 40 % (35-52); HEMOGLOBIN 13.5 g/dL (11.5-16.0); LYMPHOCYTES # (AUTO) 1.1 10^3/uL (1.0-4.0); LYMPHOCYTES % (AUTO) 10 % (12-44); MEAN CORPUSCULAR HEMOGLOBIN 32 pg (25-34); MEAN CORPUSCULAR HGB CONC 34 g/dL (32-36); MEAN CORPUSCULAR VOLUME 94 fL (80-99); MEAN PLATELET VOLUME 12.8 fL (9.0-12.2); MONOCYTES # (AUTO) 0.7 10^3/uL (0.0-1.0); MONOCYTES % (AUTO) 6 % (0-12); NEUTROPHILS # (AUTO) 9.2 10^3/uL (1.8-7.8); NEUTROPHILS % (AUTO) 82 % (42-75); PLATELET COUNT 163 10^3/uL (130-400); WHITE BLOOD COUNT 11.3 10^3/uL (4.3-11.0)
[2022-10-24 06:30] LABS: ALBUMIN 3.4 GM/DL (3.2-4.5); POTASSIUM 4.3 MMOL/L (3.6-5.0)
[2022-10-24 06:32] LABS: CALCIUM 8.7 MG/DL (8.5-10.1)
[2022-10-24 06:33] LABS: TOTAL PROTEIN 6.3 GM/DL (6.4-8.2)
[2022-10-24 06:35] LABS: BILIRUBIN,TOTAL 0.1 MG/DL (0.1-1.0)
[2022-10-24 06:36] LABS: CREATININE SERUM 0.71 MG/DL (0.60-1.30)
[2022-10-24 07:35] VITALS: BP 123/83
[2022-10-24] MEDS: SENNOSIDES 8.6 MG (SENOKOT) TAB PO SCH ×2 (08:14→19:58)
[2022-10-24] MEDS: DAPSONE 100 MG TABLET PO SCH (08:14)
[2022-10-24] MEDS: DOCUSATE SODIUM 100 MG (COLACE) CAP PO SCH ×2 (08:14→19:58)
--- NOTE | 2022-10-24 08:28 | Consultation - Surgery ---
DEVYN YEE 10/24/22 0828: History of Present Illness History of Present Illness Patient Consulted On(jayme/time) 10/24/22 08:23 Date Seen by Provider: Oct 24, 2022 Time Seen by Provider: 07:35 History of Present Illness Patient is seen after presenting to the ED with pleuritic left arm pain and a rash that spanned from her axilla to her elbow. She states that she noticed it on ThursdayOctober 20 at first, but states that there was a "bite" in her armpit that she noticed the day prior when she was floating the river [place] [address]. She states that she had an at home temp of 102 but does not currently have a fever. She states that she did not sleep in a tent at the river and that she does not recall any tick or spider bite to that area. She says that the pain starts in her axilla and is a sharp pain that works its way to her inferior axilla. She states that the pain in her arm is a burning sensations and that it feels like it is "on fire." She states that she swam in the public pool in [place] on Thursday as well and she noticed the rash getting much worse at that time. Her white blood cell count has herman from 9.2 the day prior to 11.3 this mo rning. She denies any vomiting since she has been admitted to the hospital but states that she did have bouts the day prior as well as continued nausea today. She states that she feels the rash has spread to between her knees and medial thighs. She states that she has been constipated since the day prior. She denies any chills, palpitations, shortness of breath. Allergies and Home Medications Allergies Coded Allergies: Penicillins (Verified Allergy, Unknown, RASH, 09/03/16) Patient Home Medication List ALPRAZolam (ALPRAZolam) 0.25 Mg Tablet, 0.25 MG PO TID PRN for ANXIETY, (Reported) Entered as Reported by: ALIREZA BARROS on 10/24/22 1220 Last Action: Reviewed Acetaminophen (Tylenol Extra Strength) 500 Mg Tablet, 1,000 MG PO Q8H PRN for PAIN-MILD (1-4) OR TEMPATURE, (Reported) Entered as Reported by: ALIREZA BARROS on 6/23/23 1220 Last Action: Reviewed Buspirone HCl (Buspirone HCl) 10 Mg Tablet, 10 MG PO HS, (Reported) Entered as Reported by: ALIREZA BARROS on 10/24/221219 Last Action: Reviewed Cetirizine HCl (Cetirizine HCl) 10 Mg Tablet, 10 MG PO DAILY PRN for ALLERGY SYMPTOMS, (Reported) Entered as Reported by: ALIREZA BARROS on 10/24/221219 Last Action: Reviewed Clindamycin HCl (Clindamycin HCl) 300 Mg Capsule, 300 MG PO QID, (Reported) Entered as Reported by: ALIREZA BARROS on 10/24/221219 Last Action: Reviewed Desogestrel-Ethinyl Estradiol (Velivet 28 Day Tablet) 7 Days X 3 Tablet, 1 EA PO HS, (Reported) Entered as Reported by: ALIREZA BARROS on 10/24/221219 Last Action: Reviewed Hydrocodone/Acetaminophen (Hydrocodone-Acetamin 5-325 mg) 5 Mg-325 Mg Tablet, 1 TAB PO Q6H PRN for PAIN-BREAKTHROUGH, (Reported) Entered as Reported by: ALIREZA BARROS on 10/24/221219 Last Action: Reviewed Mupirocin (Mupirocin) 2 % Oint...g., 1 APPLIC TOP BID, (Reported) Entered as Reported by: ALIREZA BARORS on 10/24/221219 Last Action: Reviewed Pantoprazole Sodium (Pantoprazole Sodium) 40 Mg Tablet.dr, 40 MG PO DAILY PRN for HEARTBURN, (Reported) Entered as Reported by: ALIREZA BARROS on 10/24/221219 Last Action: Reviewed Prednisone (Prednisone) 20 Mg Tab, MG PO UD, (Reported) Entered as Reported by: ALIREZA BARROS on 10/24/221219 Last Action: Reviewed Sertraline HCl (Sertraline HCl) 100 Mg Tablet, 100 MG PO HS, (Reported) Entered as Reported by: ALIREZA BARROS on 10/24/221219 Last Action: Reviewed Discontinued Medications Clindamycin HCl (Clindamycin HCl) 300 Mg Capsule, 300 MG PO QID Discontinued Reason: No Longer Taking Prescribed by: DEVEN FISHER on 10/22/22 2702 Last Action: Discontinued Docusate Sodium (Docusate Sodium) 100 Mg Capsule, 100 MG PO BID Discontinued Reason: No Longer Taking Prescribed by: ADALBERTO MORLEY on 09/05/16811 Last Action: Discontinued Folic Acid (Folic Acid) 20 Mg Capsule, 20 MG PO DAILY, (Reported) Discontinued Reason: No Longer Taking Entered as Reported by: MARGO HEMPHILL on 09/03/161034 Last Action: Discontinued Hydrocodone/Acetaminophen (Hydrocodone-Acetamin 5-325 mg) 5 Mg-325 Mg Tablet, 1 TAB PO Q6H PRN for PAIN-MODERATE (5-7) Discontinued Reason: No Longer Taking Prescribed by: Jenni manning on 10/21/22 0636 Last Action: Discontinued Ibuprofen (Ibuprofen) 800 Mg Tablet, 800 MG PO Q6HR Discontinued Reason: No Longer Taking Prescribed by: ADALBERTO MORLEY on 09/05/16811 Last Action: Discontinued Medroxyprogesterone Acetate (Medroxyprogesterone Acetate) 10 Mg Tablet, 10 MG PO DAILY Discontinued Reason: No Longer Taking Prescribed by: KAITLIN CABRAL on 12/28/19 1215 Last Action: Discontinued Multivitamin (Flintstones) 1 Each Tab.chew, 1 EACH PO DAILY, (Reported) Discontinued Reason: No Longer Taking Entered as Reported by: MARGO HEMPHILL on 09/03/161034 Last Action: Discontinued Mupirocin (Mupirocin) 2 % Oin.pf.deborah, 1 GM TP BID Discontinued Reason: No Longer Taking Prescribed by: Jenni manning on 10/21/22 0638 Last Action: Discontinued Oxycodone HCl/Acetaminophen (Oxycodone-Acetaminophen 5-325) 1 Each Tablet, 1-2 TAB PO Q3H PRN for PAIN-MODERATE Discontinued Reason: No Longer Taking Prescribed by: ADALBERTO MORLEY on 09/05/16811 Last Action: Discontinued Sertraline HCl (Zoloft) 25 Mg Tablet, 25 MG PO DAILY, (Reported) Discontinued Reason: No Longer Taking Entered as Reported by: MARGO HEMPHILL on 09/03/161034 Last Action: Discontinued Past Dzikxht-Xrfsne-Ugrljs Hx Patient Social History Smoking Status: Smoker Current Status UNK 2nd Hand Smoke Exposure: No Recent Hopitalizations: No Alcohol Use?: Yes Immunizations Up To Date Tetanus Booster (TDap): Less than 5yrs PED Vaccines UTD: Yes Seasonal Allergies Seasonal Allergies: Yes Surgeries History of Surgeries: Yes Surgeries: Section Respiratory History of Respiratory Disorde: No Cardiovascular History of Cardiac Disorders: No Neurological History of Neurological Disord: No Reproductive System : No Hx Reproductive Disorders: Yes Sexually Transmitted Disease: No HIV/AIDS: No Female Reproductive Disorders: Polycystic Ovarian Dis Genitourinary History of Genitourinary Disor: No Gastrointestinal History of Gastrointestinal Di: No Musculoskeletal History of Musculoskeletal Dis: No Endocrine History of Endocrine Disorders: No HEENT History of HEENT Disorders: No Cancer History of Cancer: No Psychosocial History of Psychiatric Problem: Yes Behavioral Health Disorders: Anxiety Integumentary History of Skin or Integumenta: No Blood Transfusions History of Blood Disorders: No Adverse Reaction to a Blood Tr: No Family Medical History Significant Family History: No Pertinent Family Hx Family Medial History: Cardiovascular disease 19 FATHER Hypertension 19 FATHER 19 MOTHER Review of Systems-General Constitutional: No chills, No diaphoresis EENTM: epistaxis (from throwing up the day prior but have subsided. ); No ear pain, No blurred vision, No double vision, No eye pain Respiratory: No cough, No dyspnea on exertion, No hemoptysis, No phlegm, No short of breath Cardiovascular: No chest pain, No edema, No palpitations, No syncope Gastrointestinal: No RUQ, No LUQ, No RLQ, No LLQ; constipation; No diarrhea, No dysphagia Genitourinary: No dysuria, No frequency, No hematuria Musculoskeletal: No back pain, No joint pain Skin: No change in color, No change in hair/nails Psychiatric/Neurological: Anxiety; Denies Depressed, Denies Headache, Denies Paresthesia, Denies Tingling Physical Exam-General Problems Physical Exam Vital Signs Vital Signs - First Documented 10/23/22 17:42 Temp 36.9 Pulse 73 Resp 20 B/P (MAP) 132/80 (97) Pulse Ox 100 O2 Delivery Room Air Capillary Refill : Less Than 3 Seconds General Appearance: WD/WN, no apparent distress Eyes: Bilateral Eye PERRL, Bilateral Eye EOMI HEENT: PERRL/EOMI Neck: non-tender, supple Respiratory: chest non-tender, lungs clear, no respiratory distress, no accessory muscle use; No crackles, No rales, No wheezing Cardiovascular: regular rate, rhythm, no edema, no gallop, no murmur Peripheral Pulses: 4+ Carotid (R), 4+ Carotid (L), 4+ Radial Pulses (R), 4+ Radial Pulses (L) Gastrointestinal: non tender, no pulsatile mass; No abnormal bowel sounds, No distended, No tenderness Back: no CVA tenderness, no vertebral tenderness Extremities: no pedal edema, no calf tenderness, inflammation (left proximal axilla and arm. ), swelling (left proximal axilla and arm. ) Neurologic/Psychiatric: alert, normal mood/affect, oriented x 3 Skin: rash (left arm) Lymphatic: axilla node tender (L) Data Review Labs Laboratory Tests 10/23/22 18:15: White Blood Count 9.2, Red Blood Count 4.14, Hemoglobin 13.1, Hematocrit 39, Mean Corpuscular Volume 95, Mean Corpuscular Hemoglobin 32, Mean Corpuscular Hemoglobin Concent 33, Red Cell Distribution Width 12.7, Platelet Count 155, Mean Platelet Volume 13.0H, Immature Granulocyte % (Auto) 0, Neutrophils (%) (Auto) 77H, Lymphocytes (%) (Auto) 10L, Monocytes (%) (Auto) 4, Eosinophils (%) (Auto) 8, Basophils (%) (Auto) 0, Neutrophils # (Auto) 7.1, Lymphocytes # (Auto) 0.9L, Monocytes # (Auto) 0.4, Eosinophils # (Auto) 0.7H, Basophils # (Auto) 0.0, Immature Granulocyte # (Auto) 0.0, Erythrocyte Sedimentation Rate 23H, Prothrombin Time 12.5, INR Comment 0.9, Activated Partial Thromboplast Time 27, Sodium Level 138, Potassium Level 3.4L, Chloride Level 108H, Carbon Dioxide Level 21, Anion Gap 9, Blood Urea Nitrogen 5L, Creatinine 0.80, Estimat Glomerular Filtration Rate 100, BUN/Creatinine Ratio 6, Glucose Level 113H, Lactic Acid Level 0.97, Calcium Level 8.6, Corrected Calcium 8.8, Total Bilirubin 0.2, Aspartate Amino Transf (AST/SGOT) 63H, Alanine Aminotransferase ( ALT/SGPT) 96H, Alkaline Phosphatase 115, C-Reactive Protein High Sensitivity 5.83H, Total Protein 6.6, Albumin 3.7 10/23/22 19:52: Serum Test, Qualitative NEGATIVE 10/24/22 05:55: White Blood Count 11.3H, Red Blood Count 4.24, Hemoglobin 13.5, Hematocrit 40, Mean Corpuscular Volume 94, Mean Corpuscular Hemoglobin 32, Mean Corpuscular Hemoglobin Concent 34, Red Cell Distribution Width 12.5, Platelet Count 163, Mean Platelet Volume 12.8H, Immature Granulocyte % (Auto) 0, Neutrophils (%) (Auto) 82H, Lymphocytes (%) (Auto) 10L, Monocytes (%) (Auto) 6, Eosinophils (%) (Auto) 2, Basophils (%) (Auto) 0, Neutrophils # (Auto) 9.2H, Lymphocytes # (Auto) 1.1, Monocytes # (Auto) 0.7, Eosinophils # (Auto) 0.3, Basophils # (Auto) 0.0, Immature Granulocyte # (Auto) 0.0, Sodium Level 139, Potassium Level 4.3, Chloride Level 108H, Carbon Dioxide Level 24, Anion Gap 7, Blood Urea Nitrogen 7, Creatinine 0.71, Estimat Glomerular Filtration Rate 115, BUN/Creatinine Ratio 10, Glucose Level 101, Calcium Level 8.7, Corrected Calcium 9.2, Total Bilirubin 0.1, Aspartate Amino Transf (AST/SGOT) 43H, Alanine Aminotransferase (ALT/SGPT) 83H, Alkaline Phosphatase 107, Total Protein 6.3L, Albumin 3.4 Assessment/Plan Assessment/Plan Assessment/Plan Rash of left proximal arm and axilla Inflamed left axilla lymph node Constipation Bite wound to left axilla Rash to medial thighs bilaterally Patient is currently on Doxycyline, Recephin and Dapsone to cover for tick as well as spider bite. Her rash has continue outside the perimeter that was drawn and she has lymph node involvement to her superior axilla lymph node. DEVYN CRAMER DO 10/24/22 0246: History of Present Illness History of Present Illness History of Present Illness Consult requested by Dr. Sierra for cellulitis left arm.. Patient is a 32 year old femlae who developed redness on left arm and maybe had a bite. She was on a float trip for Father[place] day. Noticed purplish discoloration about dime sized on proximal left arm and had erythema large portion of left upper arm and fever. Has been on antibiotics but not had any improvement. Patient even had an incision and drainage performed but she didn't think anything came out of it and it did not improve.Burning type pain in the left arm. WBC increased. In ED erythema was outlined and it has gotten slightly larger from last night. Allergies and Home Medications Allergies Coded Allergies: Penicillins (Verified Allergy, Unknown, RASH, 09/03/16) Patient Home Medication List Home Medication List Reviewed: Yes ALPRAZolam (ALPRAZolam) 0.25 Mg Tablet, 0.25 MG PO TID PRN for ANXIETY, (Repor zonia) Entered as Reported by: ALIREZA BARROS on 10/24/221219 Last Action: Reviewed Acetaminophen (Tylenol Extra Strength) 500 Mg Tablet, 1,000 MG PO Q8H PRN for PAIN-MILD (1-4) OR TEMPATURE, (Reported) Entered as Reported by: ALIREZA BARROS on 10/24/221219 Last Action: Reviewed Buspirone HCl (Buspirone HCl) 10 Mg Tablet, 10 MG PO HS, (Reported) Entered as Reported by: ALIREZA BARROS on 10/24/221219 Last Action: Reviewed Cetirizine HCl (Cetirizine HCl) 10 Mg Tablet, 10 MG PO DAILY PRN for ALLERGY SYMPTOMS, (Reported) Entered as Reported by: ALIREZA BARROS on 10/24/221219 Last Action: Reviewed Clindamycin HCl (Clindamycin HCl) 300 Mg Capsule, 300 MG PO QID, (Reported) Entered as Reported by: ALIREZA BARROS on 10/24/221219 Last Action: Reviewed Desogestrel-Ethinyl Estradiol (Velivet 28 Day Tablet) 7 Days X 3 Tablet, 1 EA PO HS, (Reported) Entered as Reported by: ALIREZA BARROS on 10/24/221219 Last Action: Reviewed Hydrocodone/Acetaminophen (Hydrocodone-Acetamin 5-325 mg) 5 Mg-325 Mg Tablet, 1 TAB PO Q6H PRN for PAIN-BREAKTHROUGH, (Reported) Entered as Reported by: ALIREZA BARROS on 10/24/221219 Last Action: Reviewed Mupirocin (Mupirocin) 2 % Oint...g., 1 APPLIC TOP BID, (Reported) Entered as Reported by: ALIREZA BARROS on 10/24/221219 Last Action: Reviewed Pantoprazole Sodium (Pantoprazole Sodium) 40 Mg Tablet.dr, 40 MG PO DAILY PRN for HEARTBURN, (Reported) Entered as Reported by: ALIREZA BARROS on 10/24/22 122 Last Action: Reviewed Prednisone (Prednisone) 20 Mg Tab, MG PO UD, (Reported) Entered as Reported by: ALIREZA BARROS on 10/24/22 122 Last Action: Reviewed Sertraline HCl (Sertraline HCl) 100 Mg Tablet, 100 MG PO HS, (Reported) Entered as Reported by: ALIREZA BARROS on 10/24/221219 Last Action: Reviewed Discontinued Medications Clindamycin HCl (Clindamycin HCl) 300 Mg Capsule, 300 MG PO QID Discontinued Reason: No Longer Taking Prescribed by: DEVEN FISHER on 10/22/22 1402 Last Action: Discontinued Docusate Sodium (Docusate Sodium) 100 Mg Capsule, 100 MG PO BID Discontinued Reason: No Longer Taking Prescribed by: ADALBERTO MORLEY on 09/05/16 08 Last Action: Discontinued Folic Acid (Folic Acid) 20 Mg Capsule, 20 MG PO DAILY, (Reported) Discontinued Reason: No Longer Taking Entered as Reported by: MARGO HEMPHILL on 09/03/16 1035 Last Action: Discontinued Hydrocodone/Acetaminophen (Hydrocodone-Acetamin 5-325 mg) 5 Mg-325 Mg Tablet, 1 TAB PO Q6H PRN for PAIN-MODERATE (5-7) Discontinued Reason: No Longer Taking Prescribed by: Jenni manning on 10/21/22 0636 Last Action: Discontinued Ibuprofen (Ibuprofen) 800 Mg Tablet, 800 MG PO Q6HR Discontinued Reason: No Longer Taking Prescribed by: ADALBERTO MORLEY on 09/05/16811 Last Action: Discontinued Medroxyprogesterone Acetate (Medroxyprogesterone Acetate) 10 Mg Tablet, 10 MG PO DAILY Discontinued Reason: No Longer Taking Prescribed by: KAITLIN CABRAL on 12/28/19 1215 Last Action: Discontinued Multivitamin (Flintstones) 1 Each Tab.chew, 1 EACH PO DAILY, (Reported) Discontinued Reason: No Longer Taking Entered as Reported by: MARGO HEMPHILL on 09/03/16 1035 Last Action: Discontinued Mupirocin (Mupirocin) 2 % Oin.pf.deborah, 1 GM TP BID Discontinued Reason: No Longer Taking Prescribed by: Jenni manning on 10/21/22 0638 Last Action: Discontinued Oxycodone HCl/Acetaminophen (Oxycodone-Acetaminophen 5-325) 1 Each Tablet, 1-2 TAB PO Q3H PRN for PAIN-MODERATE Discontinued Reason: No Longer Taking Prescribed by: ADALBERTO MORLEY on 09/05/16 0812 Last Action: Discontinued Sertraline HCl (Zoloft) 25 Mg Tablet, 25 MG PO DAILY, (Reported) Discontinued Reason: No Longer Taking Entered as Reported by: MARGO HEMPHILL on 09/03/16 1035 Last Action: Discontinued Past Ihsoagz-Xdlhig-Zmcdno Hx Reviewed Nursing Assessment Reviewed/Agree w Nursing PMH: Yes Family Medical History Significant Family History: No Pertinent Family Hx Family Medial History: Cardiovascular disease 19 FATHER Hypertension 19 FATHER 19 MOTHER Review of Systems-General Constitutional: No chills, No diaphoresis; fever EENTM: No blurred vision, No double vision Respiratory: No cough, No dyspnea on exertion, No short of breath Cardiovascular: No chest pain, No palpitations Gastrointestinal: constipation; No nausea, No vomiting Genitourinary: No decreased output, No discharge Musculoskeletal: No back pain, No joint pain Skin: change in color (left upper extremity); No change in hair/nails Psychiatric/Neurological: Anxiety; Denies Depressed All Other Systems Reviewed Negative Unless Noted: Yes (Negative excepted noted.) Physical Exam-General Problems Physical Exam General Appearance: WD/WN, no apparent distress HEENT: PERRL/EOMI, normal ENT inspection Neck: non-tender, supple Respiratory: chest non-tender, no respiratory distress, no accessory muscle use Cardiovascular: regular rate, rhythm, no JVD Gastrointestinal: non tender, soft Rectal: deferred Back: no CVA tenderness, no vertebral tenderness Extremities: inflammation (left proximal axilla and arm. ), swelling (left proximal axilla and arm. ) Neurologic/Psychiatric: alert, normal mood/affect, oriented x 3 Skin: warm/dry, rash (left arm erythema with dime sized purple skin discoloration with induration underneath this area, tender to touch) Lymphatic: no adenopathy Assessment/Plan Assessment/Plan Assessment/Plan Cellulitis of left upper extremity left arm pain possible spider bite leukocytosis patient on abx and dapsone no need for debridement at this time may need in near future. close monitoring Supervisory-Addendum Brief Verification & Attestation Participated in pt care: history, MDM, physical Personally performed: exam, history, MDM, supervision of care Care discussed with: Medical Student Procedures: n/a Results interpretation: Verified all documentation Verification and Attestation of Medical Student E/M Service A PA student performed and documented this service in my presence. I reviewed and verified all information documented by the medical student and made modifications to such information, when appropriate. I personally performed the physical exam and medical decision making. Devyn Cramer, Oct 24, 2022,22:51 DEVYN YEE Oct 24, 2022 08:28 DEVYN CRAMER DO Oct 24, 2022 22:46
[2022-10-24] MEDS ORDERED: KETOROLAC 30 MG/ML VIAL IVP ONE (08:45)
[2022-10-24] MEDS: NS IV 1000 ML 1,000 ML IV SCH ×2 (08:57→22:24)
[2022-10-24] MEDS ORDERED: DOXYCYCLINE INJECTION 100 MG in NS (IVPB) 100 ML IV SCH (09:00)
[2022-10-24] MEDS ORDERED: MEROPENEM 1,000 MG in NS (IVPB) 100 ML IV SCH (10:45)
[2022-10-24] MEDS ORDERED: DOXYCYCLINE 100 MG (VIBRAMYCIN) TABLET PO SCH ×2 (10:49→17:00)
[2022-10-24] MEDS: MEROPENEM 500 MG/NS 100 ML IVPB IV SCH ×6 (11:08→22:24)
[2022-10-24 12:09] VITALS: BP 132/84
[2022-10-24] MEDS ORDERED: ACET-2267 PO (12:20)
[2022-10-24] MEDS ORDERED: PANT40TA52 PO (12:20)
[2022-10-24] MEDS ORDERED: CETI10TA17 PO (12:20)
[2022-10-24] MEDS ORDERED: BUSP10TA95 PO (12:20)
[2022-10-24] MEDS ORDERED: DESO1TAB6 PO (12:20)
[2022-10-24] MEDS ORDERED: SERT-414 PO (12:20)
[2022-10-24] MEDS ORDERED: ALPR0.254 PO (12:20)
[2022-10-24] MEDS ORDERED: MUPI22OI2 TOP (12:20)
[2022-10-24] MEDS ORDERED: ACHD5005 PO (12:20)
[2022-10-24] MEDS ORDERED: CLIN-144 PO (12:20)
[2022-10-24] MEDS ORDERED: PRD20T PO (12:20)
[2022-10-24] MEDS: KETOROLAC 30 MG/ML VIAL IVP PRN ×2 (15:49→21:05)
[2022-10-24 16:08] VITALS: BP 115/78
--- NOTE | 2022-10-24 17:39 | History & Physical-Hospitalist ---
History of Present Illness HPI/Chief Complaint Gwen Vigil is a 32 year old female with PMH anxiety, depression, obesity, who presented with rash. She first noticed it Thursday. It started in her left axilla as a bruise and has become red and swollen. The redness has extended to her elbow. She is having pain localized to an area of swelling in her axilla. She has been having fevers and chills. She has had nausea. She recently swam in a river and a pool. She has been on antibiotics since Thursday. She went to the ER Thursday and was started on Bactrim and Mupirocin. She was not improving so came back Thursday and was started on Clindamycin. She continued to worsen and was admitted for IV antibiotics. Source: patient Exam Limitations: no limitations Date Seen 10/24/22 Time Seen by a Provider: 10:20 Attending Physician Iram Paris Aprn PCP Admitting Physician: Isha Wang DO Attending Physician: Jorge L Geronimo MD Referring Physician Date of Admission Oct 23, 2022 at 21:57 Home Medications & Allergies Home Medications Reviewed patient Home Medication Reconciliation performed by pharmacy medication reconciliations thin film technician and/or nursing. Patients Allergies have been reviewed. Allergies Allergies Coded Allergies Penicillins (Verified Allergy, Unknown, RASH, 09/03/16) Past Zvjsyqy-Wtkrki-Ywyilw Hx Patient Social History Tobacco Use?: Yes Tobacco type used: Cigarettes Smoking Status: Smoker Current Status UNK Smokeless Tobacco Frequency: Never a User Use of E-Cig and/or Vaping dev: No Substance use?: No Alcohol Use?: Yes Alcohol type: Other Alcohol Frequency: Once in a while Pt feels they are or have been: No Immunizations Up To Date First/Initial COVID19 Vaccinat: NO Tetanus Booster (TDap): Less Than 5 Years Hepatitis A: No Hepatitis B: No PED Vaccines UTD: Yes Seasonal Allergies Seasonal Allergies: Yes Current Status status: No Advance Directives: No Communicates: Verbally Primary Language: Vietnamese Preferred Spoken Language: Vietnamese Is interpretation needed?: No Implanted or Applied Medical D: None Past Medical History Surgeries: Section Sexually Transmitted Disease: No HIV/AIDS: No Anxiety Blood Disorders: No Adverse Reaction/Blood Tranf: No see above HPI Family Medical History Cardiovascular disease 19 FATHER Hypertension 19 FATHER 19 MOTHER No Pertinent Family Hx Review of Systems Constitutional: chills, fever Respiratory: no symptoms reported Cardiovascular: no symptoms reported Gastrointestinal: nausea Physical Exam Physical Exam Vital Signs Vital Signs - First Documented 10/23/22 17:42 Temp 36.9 Pulse 73 Resp 20 B/P (MAP) 132/80 (97) Pulse Ox 100 O2 Delivery Room Air Capillary Refill : Less Than 3 Seconds Height, Weight, BMI Height: 5'4.00" Weight: 259lbs. 0.0oz. [id number]; 35.28 BMI Method: General Appearance: No Apparent Distress, Obese HEENT: PERRL/EOMI, Pharynx Normal Neck: Normal Inspection, Supple Respiratory: Lungs Clear, Normal Breath Sounds, No Respiratory Distress Cardiovascular: Regular Rate, Rhythm, No Edema, No Murmur Gastrointestinal: Normal Bowel Sounds, Non Tender, Soft Extremity: Other (left axilla with redness extending to the elbow dark red and well demarcated, tenderness of the axilla surrounding a swollen lymph node, bilateral thigh maculopapular rash) Neurologic/Psychiatric: Alert, Oriented x3, No Motor/Sensory Deficits Skin: Rash Lymphatic: Axilla Node Tender (L) Results Results/Procedures Labs Laboratory Tests 10/23/22 18:15 10/24/22 05:55 Patient resulted labs reviewed. Assessment/Plan Admission Diagnosis Cellulitis Admission Status: Observation Assessment and Plan Cellulitis Lymphadenopathy Drug rash On Bactrim and Clindamycin outpatient Started on Rocephin and Doxycydline Transition to Merrem Antihistamines for allergic reaction Consider steroids Surgery consulted Diagnosis/Problems Diagnosis/Problems (1) Cellulitis Status: Acute Qualifiers: Site of cellulitis: extremity Site of cellulitis of extremity: upper extremity Laterality: left Qualified Codes: L03.114 - Cellulitis of left upper limb (2) Axillary lymphadenopathy Status: Acute (3) Drug rash Status: Acute (4) Obesity Status: Chronic JORGE L GERONIMO MD Oct 24, 2022 17:39
[2022-10-24] MEDS ORDERED: LORATADINE (CLARITIN) 10 MG TAB PO NR (18:30)
[2022-10-24 19:30] VITALS: BP 128/83
[2022-10-24] MEDS: ACETAMINOPHEN 325 MG TABLET PO PRN (19:52)
[2022-10-24] MEDS: ENOXAPARIN 40 MG/0.4 ML (LOVENOX) SYR SC SCH (19:58)
[2022-10-24] MEDS ORDERED: cefTRIAXone IV/IM 1,000 MG in NS (IVPB) 50 ML IV SCH (21:00)
[2022-10-24] MEDS: fentaNYL INJ 100 MCG/2 ML AMP IVP PRN (22:24)
[2022-10-24 23:40] VITALS: BP 140/87
[2022-10-25] MEDS: fentaNYL INJ 100 MCG/2 ML AMP IVP PRN ×7 (00:51→20:09)
[2022-10-25] MEDS: diphenhydrAMINE 50 MG/ML INJ (BENADRYL) IVP PRN (03:10)
[2022-10-25 03:11] VITALS: BP 112/79
[2022-10-25] MEDS: KETOROLAC 30 MG/ML VIAL IVP PRN ×4 (03:11→22:30)
[2022-10-25] MEDS: NS IV 1000 ML 1,000 ML IV SCH ×2 (05:28→10:56)
[2022-10-25] MEDS: MEROPENEM 500 MG/NS 100 ML IVPB IV SCH ×8 (05:34→22:24)
[2022-10-25 06:21] LABS: BASOPHILS % (AUTO) 0 % (0-10); EOSINOPHILS # (AUTO) 0.9 10^3/uL (0.0-0.3); EOSINOPHILS % (AUTO) 8 % (0-10); HEMATOCRIT 36 % (35-52); HEMOGLOBIN 12.1 g/dL (11.5-16.0); LYMPHOCYTES # (AUTO) 1.5 10^3/uL (1.0-4.0); LYMPHOCYTES % (AUTO) 14 % (12-44); MEAN CORPUSCULAR HEMOGLOBIN 31 pg (25-34); MEAN CORPUSCULAR HGB CONC 34 g/dL (32-36); MEAN CORPUSCULAR VOLUME 93 fL (80-99); MEAN PLATELET VOLUME 12.5 fL (9.0-12.2); MONOCYTES # (AUTO) 0.7 10^3/uL (0.0-1.0); MONOCYTES % (AUTO) 7 % (0-12); NEUTROPHILS % (AUTO) 71 % (42-75); PLATELET COUNT 167 10^3/uL (130-400); WHITE BLOOD COUNT 11.3 10^3/uL (4.3-11.0)
[2022-10-25] MEDS: ACETAMINOPHEN 325 MG TABLET PO PRN (06:34)
[2022-10-25 06:42] LABS: ALBUMIN 3.2 GM/DL (3.2-4.5); BILIRUBIN,TOTAL 0.3 MG/DL (0.1-1.0); CALCIUM 8.3 MG/DL (8.5-10.1); CREATININE SERUM 0.66 MG/DL (0.60-1.30); POTASSIUM 3.7 MMOL/L (3.6-5.0); TOTAL PROTEIN 5.8 GM/DL (6.4-8.2)
[2022-10-25 07:23] VITALS: BP 126/86
[2022-10-25] MEDS: LORATADINE (CLARITIN) 10 MG TAB PO SCH (07:51)
[2022-10-25] MEDS: DAPSONE 100 MG TABLET PO SCH (07:51)
[2022-10-25] MEDS: SENNOSIDES 8.6 MG (SENOKOT) TAB PO SCH ×2 (07:51→20:02)
[2022-10-25] MEDS: DOCUSATE SODIUM 100 MG (COLACE) CAP PO SCH ×2 (07:51→20:02)
[2022-10-25] MEDS ORDERED: predniSONE 20 MG TAB PO ONE (10:30)
[2022-10-25 11:28] VITALS: BP 143/96
--- NOTE | 2022-10-25 12:07 | Diagnostic Imaging Report ---
EXAMINATION: Left upper extremity nonvascular sonogram. HISTORY: Swelling and redness. COMPARISON: None available. FINDINGS: Focused ultrasound in the area of the abnormality in the left axilla and upper arm was performed. There is edematous subcutaneous fat. No fluid collection or abscess is seen. IMPRESSION: Edematous subcutaneous fat but no abscess. Dictated by: Dictated on workstation # [id number]
--- NOTE | 2022-10-25 13:57 | Progress Note - Surgery ---
Subjective Date Seen by a Provider: Oct 25, 2022 Time Seen by a Provider: 13:56 Subjective/Events-last exam Left arm is feeling better, started improving last night. Less pain. Rash on legs maybe a little worse. distribution. Denies any fever sweats chills shortness of breath or chest pain. Focused Exam Lactate Level 10/23/22 18:15: Lactic Acid Level 0.97 Objective Exam Vital Signs Date Time Temp Pulse Resp B/P (MAP) Pulse Ox O2 Delivery O2 Flow Rate FiO2 10/25/22 11:28 36.4 58 18 143/96 (112) 93 Room Air 10/25/22 08:00 Room Air 10/25/22 07:23 36.3 56 18 126/86 (99) 96 Room Air 10/25/22 03:11 36.2 73 18 112/79 (90) 97 Room Air 10/24/22 23:40 36.8 78 16 140/87 (104) 95 Room Air 10/24/22 20:17 Room Air 10/24/22 19:30 36.1 63 14 128/83 (98) 98 Room Air 10/24/22 16:08 36.5 65 18 115/78 (90) 97 Room Air I & O 10/25/22 06:59 Intake Total 4030 ml Balance 4030 ml Capillary Refill : Less Than 3 Seconds General Appearance: No Apparent Distress, Obese HEENT: PERRL/EOMI, Pharynx Normal Neck: Normal Inspection, Supple Respiratory: Lungs Clear, Normal Breath Sounds, No Respiratory Distress Cardiovascular: Regular Rate, Rhythm, No Edema, No Murmur Peripheral Pulses: 4+ Carotid (R), 4+ Carotid (L), 4+ Radial Pulses (R), 4+ Radial Pulses (L) Gastrointestinal: non tender, soft Extremity: Other (left axilla with redness extending to the elbow darker red compared to yesterday and well demarcated, purple wound no change with induration, tenderness of the axilla surrounding a swollen lymph node, bilateral thigh maculopapular rash) Neurologic/Psychiatric: Alert, Oriented x3, No Motor/Sensory Deficits Skin: Rash Lymphatic: Axilla Node Tender (L) Results Lab Laboratory Tests 10/25/22 05:55: White Blood Count 11.3H, Red Blood Count 3.87, Hemoglobin 12.1, Hematocrit 36, Mean Corpuscular Volume 93, Mean Corpuscular Hemoglobin 31, Mean Corpuscular Hemoglobin Concent 34, Red Cell Distribution Width 12.5, Platelet Count 167, Mean Platelet Volume 12.5H, Immature Granulocyte % (Auto) 1, Neutrophils (%) (Auto) 71, Lymphocytes (%) (Auto) 14, Monocytes (%) (Auto) 7, Eosinophils (%) (Auto) 8, Basophils (%) (Auto) 0, Neutrophils # (Auto) 8.0H, Lymphocytes # (Auto) 1.5, Monocytes # (Auto) 0.7, Eosinophils # (Auto) 0.9H, Basophils # (Auto) 0.0, Immature Granulocyte # (Auto) 0.1, Sodium Level 139, Potassium Level 3.7, Chloride Level 108H, Carbon Dioxide Level 21, Anion Gap 10, Blood Urea Nitrogen 6L, Creatinine 0.66, Estimat Glomerular Filtration Rate 119, BUN/Creatinine Ratio 9, Glucose Level 106H, Calcium Level 8.3L, Corrected Calcium 8.9, Total Bilirubin 0.3, Aspartate Amino Transf (AST/SGOT) 42H, Alanine Aminotransferase (ALT/SGPT) 76H, Alkaline Phosphatase 103, Total Protein 5.8L, Albumin 3.2 Microbiology 10/23/22 Blood Culture - Preliminary, Resulted No growth Assessment/Plan Assessment/Plan Assessment/Plan Cellulitis of left upper extremity left arm pain possible spider bite leukocytosis patient on abx and dapsone no need for debridement at this time arm improving continue to monitor rash may need surgical intervention in near future. close monitoring DEVYN CRAMER DO Oct 25, 2022 13:57
--- NOTE | 2022-10-25 14:13 | Progress Note - Hospitalist ---
Subjective HPI/CC On Admission Date Seen by Provider: Oct 25, 2022 Time Seen by Provider: 10:15 Gwen Vigil is a 32 year old female with PMH anxiety, depression, obesity, who presented with rash. She first noticed it Thursday. It started in her left axilla as a bruise and has become red and swollen. The redness has extended to her el bow. She is having pain localized to an area of swelling in her axilla. She has been having fevers and chills. She has had nausea. She recently swam in a river and a pool. She has been on antibiotics since Thursday. She went to the ER Thursday and was started on Bactrim and Mupirocin. She was not improving so came back Thursday and was started on Clindamycin. She continued to worsen and was admitted for IV antibiotics. Subjective/Events-last exam She is having pain in her left axilla and arm. Her rash on her legs has spread and she continues to have itching. Focused Exam Lactate Level 10/23/22 18:15: Lactic Acid Level 0.97 Objective Exam Vital Signs Vital Signs Date Time Temp Pulse Resp B/P (MAP) Pulse Ox O2 Delivery O2 Flow Rate FiO2 10/25/22 11:28 36.4 58 18 143/96 (112) 93 Room Air Capillary Refill : Less Than 3 Seconds General Appearance: Mild Distress (uncomfortable), Obese Respiratory: Lungs Clear, No Respiratory Distress Cardiovascular: Regular Rate, Rhythm, No Murmur Gastrointestinal: Normal Bowel Sounds, Soft Extremity: Non Tender, No Pedal Edema Neurologic/Psychiatric: Alert, No Motor/Sensory Deficits Skin: Erythema (left arm and axilla with axillary tenderness), Rash (bilateral legs and back, maculopapular) Results/Procedures Lab Laboratory Tests 10/25/22 05:55 Patient resulted labs reviewed. Assessment/Plan Assessment and Plan Assess & Plan/Chief Complaint Cellulitis Lymphadenopathy Drug rash On Bactrim and Clindamycin outpatient Rocephin and Doxycydline stopped Continue Merrem Antihistamines for allergic reaction Begin steroids Surgery following Ultrasound with soft tissue swelling, no abscess Diagnosis/Problems Diagnosis/Problems (1) Cellulitis Status: Acute Qualifiers: Site of cellulitis: extremity Site of cellulitis of extremity: upper extremity Laterality: left Qualified Codes: L03.114 - Cellulitis of left upper limb (2) Axillary lymphadenopathy Status: Acute (3) Drug rash Status: Acute (4) Obesity Status: Chronic JORGE L GERONIMO MD Oct 25, 2022 14:13
[2022-10-25 16:13] VITALS: BP 144/86
[2022-10-25 20:01] VITALS: BP 120/73
[2022-10-25] MEDS: ENOXAPARIN 40 MG/0.4 ML (LOVENOX) SYR SC SCH (20:02)
[2022-10-25] MEDS: diphenhydrAMINE 25 MG TAB (BENADRYL) PO PRN (22:30)
[2022-10-25 23:00] VITALS: BP 138/80
[2022-10-26] MEDS: fentaNYL INJ 100 MCG/2 ML AMP IVP PRN ×2 (01:47→05:29)
[2022-10-26] MEDS: NS IV 1000 ML 1,000 ML IV SCH (02:51)
[2022-10-26] MEDS: MEROPENEM 500 MG/NS 100 ML IVPB IV SCH ×8 (04:04→23:09)
[2022-10-26] MEDS: KETOROLAC 30 MG/ML VIAL IVP PRN (04:35)
[2022-10-26] MEDS: predniSONE 20 MG TAB PO SCH (05:27)
[2022-10-26 05:48] LABS: BASOPHILS % (AUTO) 0 % (0-10); EOSINOPHILS # (AUTO) 0.1 10^3/uL (0.0-0.3); EOSINOPHILS % (AUTO) 1 % (0-10); HEMATOCRIT 35 % (35-52); HEMOGLOBIN 11.7 g/dL (11.5-16.0); LYMPHOCYTES # (AUTO) 1.6 10^3/uL (1.0-4.0); LYMPHOCYTES % (AUTO) 14 % (12-44); MEAN CORPUSCULAR HEMOGLOBIN 32 pg (25-34); MEAN CORPUSCULAR HGB CONC 34 g/dL (32-36); MEAN CORPUSCULAR VOLUME 93 fL (80-99); MEAN PLATELET VOLUME 12.3 fL (9.0-12.2); MONOCYTES # (AUTO) 0.9 10^3/uL (0.0-1.0); MONOCYTES % (AUTO) 8 % (0-12); NEUTROPHILS # (AUTO) 8.9 10^3/uL (1.8-7.8); NEUTROPHILS % (AUTO) 77 % (42-75); PLATELET COUNT 176 10^3/uL (130-400); WHITE BLOOD COUNT 11.6 10^3/uL (4.3-11.0)
[2022-10-26 06:18] LABS: ALBUMIN 3.3 GM/DL (3.2-4.5)
[2022-10-26 06:19] LABS: POTASSIUM 3.8 MMOL/L (3.6-5.0)
[2022-10-26 06:20] LABS: CALCIUM 8.9 MG/DL (8.5-10.1)
[2022-10-26 06:23] LABS: BILIRUBIN,TOTAL 0.1 MG/DL (0.1-1.0)
[2022-10-26 06:24] LABS: CREATININE SERUM 0.61 MG/DL (0.60-1.30)
[2022-10-26 07:24] VITALS: BP 134/83
[2022-10-26] MEDS: DAPSONE 100 MG TABLET PO SCH (09:51)
[2022-10-26] MEDS: DOCUSATE SODIUM 100 MG (COLACE) CAP PO SCH ×2 (09:51→20:52)
[2022-10-26] MEDS: SENNOSIDES 8.6 MG (SENOKOT) TAB PO SCH ×2 (09:51→20:51)
[2022-10-26] MEDS: LORATADINE (CLARITIN) 10 MG TAB PO SCH (09:51)
--- NOTE | 2022-10-26 10:14 | Progress Note - Surgery ---
Subjective Date Seen by a Provider: Oct 26, 2022 Time Seen by a Provider: 10:11 Subjective/Events-last exam Overall improving. Left arm just tender at indurated area near purple area. Rash improving. Wanting to go home. Denies n/v fever sweats chills shortness of breath or chest pain. Focused Exam Lactate Level 10/23/22 18:15: Lactic Acid Level 0.97 Objective Exam Vital Signs Date Time Temp Pulse Resp B/P (MAP) Pulse Ox O2 Delivery O2 Flow Rate FiO2 10/26/22 07:24 36.2 56 18 134/83 (100) 99 Room Air 10/25/22 23:00 36.5 67 20 138/80 (99) 94 Room Air 10/25/22 20:01 36.2 58 18 120/73 (89) 97 Room Air 10/25/22 20:00 Room Air 10/25/22 16:13 36.4 73 16 144/86 (105) 95 Room Air 10/25/22 11:28 36.4 58 18 143/96 (112) 93 Room Air I & O 10/26/22 06:59 Intake Total 3600 ml Output Total 300 ml Balance 3300 ml Capillary Refill : Less Than 3 Seconds General Appearance: No Apparent Distress, Obese HEENT: PERRL/EOMI, Pharynx Normal Neck: Normal Inspection, Supple Respiratory: Chest Non Tender, No Accessory Muscle Use, No Respiratory Distress Cardiovascular: Regular Rate, Rhythm, No JVD Peripheral Pulses: 4+ Carotid (R), 4+ Carotid (L), 4+ Radial Pulses (R), 4+ Radial Pulses (L) Gastrointestinal: non tender, soft Extremity: Other (left axilla with redness extending to the elbow darker red compared to yesterday and well demarcated, purple wound no change with kasia ration, tenderness of the axilla indurated, bilateral thigh maculopapular rash improving) Neurologic/Psychiatric: Alert, Oriented x3, No Motor/Sensory Deficits Skin: Warm/Dry, Rash Lymphatic: Axilla Node Tender (L) Results Lab Laboratory Tests 10/26/22 05:42: White Blood Count 11.6H, Red Blood Count 3.72L, Hemoglobin 11.7, Hematocrit 35, Mean Corpuscular Volume 93, Mean Corpuscular Hemoglobin 32, Mean Corpuscular Hemoglobin Concent 34, Red Cell Distribution Width 12.1, Platelet Count 176, Mean Platelet Volume 12.3H, Immature Granulocyte % (Auto) 1, Neutrophils (%) (Auto) 77H, Lymphocytes (%) (Auto) 14, Monocytes (%) (Auto) 8, Eosinophils (%) (Auto) 1, Basophils (%) (Auto) 0, Neutrophils # (Auto) 8.9H, Lymphocytes # (Auto) 1.6, Monocytes # (Auto) 0.9, Eosinophils # (Auto) 0.1, Basophils # (Auto) 0.0, Immature Granulocyte # (Auto) 0.1, Sodium Level 139, Potassium Level 3.8, Chloride Level 109H, Carbon Dioxide Level 23, Anion Gap 7, Blood Urea Nitrogen 8, Creatinine 0.61, Estimat Glomerular Filtration Rate 121, BUN/Creatinine Ratio 13, Glucose Level 119H, Calcium Level 8.9, Corrected Calcium 9.5, Total Bilirubin 0.1, Aspartate Amino Transf (AST/SGOT) 28, Alanine Aminotransferase (ALT/SGPT) 73H, Alkaline Phosphatase 99, Total Protein 6.0L, Albumin 3.3 Microbiology 10/23/22 Blood Culture - Preliminary, Resulted No growth Assessment/Plan Assessment/Plan Assessment/Plan Cellulitis of left upper extremity left arm pain possible spider bite leukocytosis patient on abx and dapsone/prednisone no need for debridement at this time arm improving continue to monitor rash improving may need surgical intervention in near future. home soon with outpatient followup DEVYN CRAMER DO Oct 26, 2022 10:14
[2022-10-26] MEDS: HYDROcodone/APAP 5 MG/325 MG (LORTAB) TAB PO PRN ×3 (10:32→20:51)
[2022-10-26 15:19] VITALS: BP 125/82
--- NOTE | 2022-10-26 15:24 | Progress Note - Hospitalist ---
Subjective HPI/CC On Admission Date Seen by Provider: Oct 26, 2022 Time Seen by Provider: 12:05 Gwen Vigil is a 32 year old female with PMH anxiety, depression, obesity, who presented with rash. She first noticed it Thursday. It started in her left axilla as a bruise and has become red and swollen. The redness has extended to her el bow. She is having pain localized to an area of swelling in her axilla. She has been having fevers and chills. She has had nausea. She recently swam in a river and a pool. She has been on antibiotics since Thursday. She went to the ER Thursday and was started on Bactrim and Mupirocin. She was not improving so came back Thursday and was started on Clindamycin. She continued to worsen and was admitted for IV antibiotics. Subjective/Events-last exam She is feeling much better. Her rash is improved. Her itching is better. Her pain in her left arm is better. Focused Exam Lactate Level 10/23/22 18:15: Lactic Acid Level 0.97 Objective Exam Vital Signs Vital Signs Date Time Temp Pulse Resp B/P (MAP) Pulse Ox O2 Delivery O2 Flow Rate FiO2 10/26/22 08:00 Room Air 10/26/22 07:24 36.2 56 18 134/83 (100) 99 Capillary Refill : Less Than 3 Seconds General Appearance: No Apparent Distress, Obese Respiratory: Lungs Clear, No Respiratory Distress Cardiovascular: Regular Rate, Rhythm, No Murmur Gastrointestinal: Normal Bowel Sounds, Soft Extremity: Non Tender, No Pedal Edema Skin: Erythema, Rash (left arm and axilla) Lymphatic: Axilla Node Tender (L) Results/Procedures Lab Laboratory Tests 10/26/22 05:42 Patient resulted labs reviewed. Imaging: Reviewed Imaging Report Assessment/Plan Assessment and Plan Assess & Plan/Chief Complaint Cellulitis Lymphadenopathy Drug rash On Bactrim and Clindamycin outpatient Rocephin and Doxycydline stopped Continue Merrem, cellulitis improving Antihistamines for allergic reaction Continue Prednisone, drug rash improving Surgery following Ultrasound with soft tissue swelling, no abscess Diagnosis/Problems Diagnosis/Problems (1) Cellulitis Status: Acute Qualifiers: Site of cellulitis: extremity Site of cellulitis of extremity: upper extre mity Laterality: left Qualified Codes: L03.114 - Cellulitis of left upper limb (2) Axillary lymphadenopathy Status: Acute (3) Drug rash Status: Acute (4) Obesity Status: Chronic JORGE L GERONIMO MD Oct 26, 2022 15:24
[2022-10-26] MEDS: ALPRAZolam 0.5 MG (XANAX) TAB PO PRN ×2 (18:52→23:09)
[2022-10-26] MEDS: ENOXAPARIN 40 MG/0.4 ML (LOVENOX) SYR SC SCH (20:52)
[2022-10-26] MEDS: diphenhydrAMINE 50 MG/ML INJ (BENADRYL) IVP PRN (20:59)
[2022-10-27 00:17] VITALS: BP 111/76
[2022-10-27] MEDS: KETOROLAC 30 MG/ML VIAL IVP PRN ×2 (00:22→06:28)
[2022-10-27] MEDS: predniSONE 20 MG TAB PO SCH (05:31)
[2022-10-27] MEDS: HYDROcodone/APAP 5 MG/325 MG (LORTAB) TAB PO PRN ×2 (05:32→10:53)
[2022-10-27] MEDS: MEROPENEM 500 MG/NS 100 ML IVPB IV SCH ×4 (05:32→10:52)
[2022-10-27] MEDS: ALPRAZolam 0.5 MG (XANAX) TAB PO PRN ×2 (05:34→10:53)
[2022-10-27 05:48] LABS: BASOPHILS % (AUTO) 0 % (0-10); EOSINOPHILS # (AUTO) 0.6 10^3/uL (0.0-0.3); EOSINOPHILS % (AUTO) 5 % (0-10); HEMATOCRIT 36 % (35-52); HEMOGLOBIN 11.8 g/dL (11.5-16.0); LYMPHOCYTES # (AUTO) 3.8 10^3/uL (1.0-4.0); LYMPHOCYTES % (AUTO) 34 % (12-44); MEAN CORPUSCULAR HEMOGLOBIN 31 pg (25-34); MEAN CORPUSCULAR HGB CONC 33 g/dL (32-36); MEAN CORPUSCULAR VOLUME 95 fL (80-99); MEAN PLATELET VOLUME 12.9 fL (9.0-12.2); MONOCYTES # (AUTO) 0.8 10^3/uL (0.0-1.0); MONOCYTES % (AUTO) 7 % (0-12); NEUTROPHILS # (AUTO) 5.9 10^3/uL (1.8-7.8); NEUTROPHILS % (AUTO) 53 % (42-75); PLATELET COUNT 196 10^3/uL (130-400); WHITE BLOOD COUNT 11.2 10^3/uL (4.3-11.0)
[2022-10-27 06:03] LABS: ALBUMIN 3.2 GM/DL (3.2-4.5); BILIRUBIN,TOTAL 0.2 MG/DL (0.1-1.0); CALCIUM 8.9 MG/DL (8.5-10.1); CREATININE SERUM 0.76 MG/DL (0.60-1.30); POTASSIUM 3.6 MMOL/L (3.6-5.0); TOTAL PROTEIN 5.9 GM/DL (6.4-8.2)
[2022-10-27 07:42] VITALS: BP 154/97
[2022-10-27] MEDS: DAPSONE 100 MG TABLET PO SCH (09:06)
[2022-10-27] MEDS: DOCUSATE SODIUM 100 MG (COLACE) CAP PO SCH (09:06)
[2022-10-27] MEDS: LORATADINE (CLARITIN) 10 MG TAB PO SCH (09:07)
[2022-10-27] MEDS: SENNOSIDES 8.6 MG (SENOKOT) TAB PO SCH (09:18)
[2022-10-27] MEDS ORDERED: PRED10TA22 PO (11:38)
[2022-10-27] MEDS ORDERED: ERTA1VIA4 IJ (11:38)
--- NOTE | 2022-10-27 11:46 | Discharge Summary ---
Diagnosis/Chief Complaint Date of Admission Oct 23, 2022 at 21:57 Date of Discharge Discharge Date: Oct 27, 2022 Admission Diagnosis Cellulitis Primary Care Yovani Young DO Discharge Diagnosis (1) Cellulitis Status: Acute (2) Axillary lymphadenopathy Status: Acute (3) Drug rash Status: Acute (4) Obesity Status: Chronic Discharge Summary Discharge Physical Exam Allergies: Coded Allergies: ceftriaxone (Verified Allergy, Intermediate, rash, 10/27/22) Penicillins (Verified Allergy, Unknown, RASH, 09/03/16) Vitals & I&Os Vital Signs Date Time Temp Pulse Resp B/P (MAP) Pulse Ox O2 Delivery O2 Flow Rate FiO2 10/27/22 11:33 36.6 10/27/22 08:00 98 Room Air 10/27/22 07:42 63 20 154/97 (116) Hospital Course Labs (last 24 hrs) Laboratory Tests 10/27/22 05:10: White Blood Count 11.2H, Red Blood Count 3.76L, Hemoglobin 11.8, Hematocrit 36, Mean Corpuscular Volume 95, Mean Corpuscular Hemoglobin 31, Mean Corpuscular Hemoglobin Concent 33, Red Cell Distribution Width 12.5, Platelet Count 196, Mean Platelet Volume 12.9H, Immature Granulocyte % (Auto) 1, Neutrophils (%) (Auto) 53, Lymphocytes (%) (Auto) 34, Monocytes (%) (Auto) 7, Eosinophils (%) (Auto) 5, Basophils (%) (Auto) 0, Neutrophils # (Auto) 5.9, Lymphocytes # (Auto) 3.8, Monocytes # (Auto) 0.8, Eosinophils # (Auto) 0.6H, Basophils # (Auto) 0.0, Immature Granulocyte # (Auto) 0.1, Sodium Level 143, Potassium Level 3.6, Chloride Level 109H, Carbon Dioxide Level 25, Anion Gap 9, Blood Urea Nitrogen 15, Creatinine 0.76, Estimat Glomerular Filtration Rate 106, BUN/Creatinine Ratio 20, Glucose Level 97, Calcium Level 8.9, Corrected Calcium 9.5, Total Bilirubin 0.2, Aspartate Amino Transf (AST/SGOT) 64H, Alanine Aminotransferase (ALT/SGPT) 117H, Alkaline Phosphatase 108, Total Protein 5.9L, Albumin 3.2 Microbiology 10/23/22 Blood Culture - Preliminary, Resulted No growth Patient resulted labs reviewed. Pending Labs Laboratory Tests 10/27/22 05:10: White Blood Count 11.2, Red Blood Count 3.76, Hemoglobin 11.8, Hematocrit 36, Mean Corpuscular Volume 95, Mean Corpuscular Hemoglobin 31, Mean Corpuscular Hemoglobin Concent 33, Red Cell Distribution Width 12.5, Platelet Count 196, Radha n Platelet Volume 12.9, Immature Granulocyte % (Auto) 1, Neutrophils (%) (Auto) 53, Lymphocytes (%) (Auto) 34, Monocytes (%) (Auto) 7, Eosinophils (%) (Auto) 5, Basophils (%) (Auto) 0, Neutrophils # (Auto) 5.9, Lymphocytes # (Auto) 3.8, Monocytes # (Auto) 0.8, Eosinophils # (Auto) 0.6, Basophils # (Auto) 0.0, Immature Granulocyte # (Auto) 0.1, Sodium Level 143, Potassium Level 3.6, Chloride Level 109, Carbon Dioxide Level 25, Anion Gap 9, Blood Urea Nitrogen 15, Creatinine 0.76, Estimat Glomerular Filtration Rate 106, BUN/Creatinine Ratio 20, Glucose Level 97, Calcium Level 8.9, Corrected Calcium 9.5, Total Bilirubin 0.2, Aspartate Amino Transf (AST/SGOT) 64, Alanine Aminotransferase (ALT/SGPT) 117, Alkaline Phosphatase 108, Total Protein 5.9, Albumin 3.2 Imaging: Reviewed Imaging Report Discharge Home Medications: Active Scripts Active Ertapenem (Ertapenem Sodium) 1 Gram Vial 1 Gm IJ DAILY Prednisone 10 Mg Tab.ds.pk 10 Mg PO DAILY Take 6 tabs(60mg)daily,decrease by 1 tab(10MG)daily. Reported Cetirizine HCl 10 Mg Tablet 10 Mg PO DAILY PRN Tylenol Extra Strength (Acetaminophen) 500 Mg Tablet 1,000 Mg PO Q8H PRN Buspirone HCl 10 Mg Tablet 10 Mg PO HS Sertraline HCl 100 Mg Tablet 100 Mg PO HS ALPRAZolam 0.25 Mg Tablet 0.25 Mg PO TID PRN Velivet 28 Day Tablet (Desogestrel-Ethinyl Estradiol) 7 Days X 3 Tablet 1 Ea PO HS Mupirocin 2 % Oint...g. 1 Applic TOP BID Clindamycin HCl 300 Mg Capsule 300 Mg PO QID FILLED 10-22-2022 #28/7 DAY SUPPLY Hydrocodone-Acetamin 5-325 mg (Hydrocodone/Acetaminophen) 5 Mg-325 Mg Tablet 1 Tab PO Q6H PRN Pantoprazole Sodium 40 Mg Tablet.dr 40 Mg PO DAILY PRN Prednisone 20 Mg Tab Mg PO UD TAPER SCHEDULE: 2 TABS DAILY X 3 DAYS 1 TAB DAILY X 3 DAYS TAB DAILY X 2 DAYS THEN STOP FILLED 10-22-2022 #10/8 TIFFANIE SUPPLY Instructions to patient/family Please see electronic discharge instructions given to patient. Problem Qualifiers (1) Cellulitis: Site of cellulitis: extremity Site of cellulitis of extremity: upper extremity Laterality: left Qualified Codes: L03.114 - Cellulitis of left upper limb ELOY MARQUEZ MD Oct 27, 2022 11:46
[2022-10-27 11:49] VITALS: BP 154/97
--- NOTE | 2022-10-27 21:53 | Progress Note - Surgery ---
Subjective Date Seen by a Provider: Oct 27, 2022 Time Seen by a Provider: 09:04 Subjective/Events-last exam Rash and arm all improving. Still with indurated area at left arm near armpit. Tender to touch. She questions if it is getting bigger. Wanting to go home. Denies n/v fever sweats chills shortness of breath or chest pain. Objective Exam Vital Signs Date Time Temp Pulse Resp B/P (MAP) Pulse Ox O2 Delivery O2 Flow Rate FiO2 10/27/22 11:49 36.6 63 20 154/97 98 Room Air 10/27/22 11:33 36.6 10/27/22 08:00 98 Room Air 10/27/22 07:42 36.6 63 20 154/97 (116) 98 Room Air 10/27/22 00:17 36.5 63 18 111/76 (88) 96 Room Air I & O 10/27/22 07:00 Intake Total 2742 ml Balance 2742 ml Capillary Refill : Less Than 3 Seconds General Appearance: No Apparent Distress, Obese HEENT: PERRL/EOMI, Pharynx Normal Neck: Normal Inspection, Supple Respiratory: Lungs Clear, No Respiratory Distress Cardiovascular: Regular Rate, Rhythm, No Murmur Peripheral Pulses: 4+ Carotid (R), 4+ Carotid (L), 4+ Radial Pulses (R), 4+ Radial Pulses (L) Gastrointestinal: non tender, soft Extremity: Non Tender, No Pedal Edema Neurologic/Psychiatric: Alert, Oriented x3, No Motor/Sensory Deficits Skin: Erythema, Rash (left arm and axilla lower extremities all improving. still with purple color area on arm and induration under, no fluctuance) Lymphatic: Axilla Node Tender (L) Results Lab Laboratory Tests 10/27/22 05:10: White Blood Count 11.2H, Red Blood Count 3.76L, Hemoglobin 11.8, Hematocrit 36, Mean Corpuscular Volume 95, Mean Corpuscular Hemoglobin 31, Mean Corpuscular Hemoglobin Concent 33, Red Cell Distribution Width 12.5, Platelet Count 196, Mean Platelet Volume 12.9H, Immature Granulocyte % (Auto) 1, Neutrophils (%) (Auto) 53, Lymphocytes (%) (Auto) 34, Monocytes (%) (Auto) 7, Eosinophils (%) (Auto) 5, Basophils (%) (Auto) 0, Neutrophils # (Auto) 5.9, Lymphocytes # (Auto) 3.8, Monocytes # (Auto) 0.8, Eosinophils # (Auto) 0.6H, Basophils # (Auto) 0.0, Immature Granulocyte # (Auto) 0.1, Sodium Level 143, Potassium Level 3.6, Chloride Level 109H, Carbon Dioxide Level 25, Anion Gap 9, Blood Urea Nitrogen 15, Creatinine 0.76, Estimat Glomerular Filtration Rate 106, BUN/Creatinine Ratio 20, Glucose Level 97, Calcium Level 8.9, Corrected Calcium 9.5, Total Bilirubin 0.2, Aspartate Amino Transf (AST/SGOT) 64H, Alanine Aminotransferase (ALT/SGPT) 117H, Alkaline Phosphatase 108, Total Protein 5.9L, Albumin 3.2 Microbiology 10/23/22 Blood Culture - Preliminary, Resulted No growth Assessment/Plan Assessment/Plan Assessment/Plan Cellulitis of left upper extremity left arm pain possible spider bite leukocytosis patient on abx and dapsone/prednisone no need for debridement at this time arm and legs continue improving continue to monitor rash improving may need surgical intervention in near future. home today and I will see on Thursday. If any change before that call and be seen at that time. Patient in agreement with plan. DEVYN CRAMER DO Oct 27, 2022 21:53
== END 2022-10-27 14:28 | disposition home or self-care (01) | DRG 603 ==
LOC: EDUNIT# 17:35 → ER 17:37 → OBSVTOIN 21:57 → 4TH 21:57
PROVIDERS: ADMIT Internal Medicine; ATTEND Internal Medicine
DX: L03.112 Cellulitis of left axilla (principal); L03.114 Cellulitis of left upper limb; R59.1 Generalized enlarged lymph nodes; L27.0 Generalized skin eruption due to drugs and medicaments taken internally; K59.00 Constipation, unspecified; E66.9 Obesity, unspecified; Z68.35 Body mass index [BMI] 35.0-35.9, adult; F17.210 Nicotine dependence, cigarettes, uncomplicated; F41.9 Anxiety disorder, unspecified; F32.A Depression, unspecified; E28.2 Polycystic ovarian syndrome; J30.2 Other seasonal allergic rhinitis; Z79.899 Other long term (current) drug therapy; Z88.0 Allergy status to penicillin; Z23 Encounter for immunization
CPT/HCPCS: 36410; 36415; 76881; 76937; 80053; 83605; 84703; 85025; 85610; 85652; 85730; 86141; 86666; 86668; 86757; 87040; 90715; G0378

== ENCOUNTER 2023-03-20 22:10 | Observation (INO) | payer SELFPAY ==
[~2023-03-20] VITALS: Ht 162.8 cm; Wt 89.3 kg
[~2023-03-20 22:10] MED LIST changes: +ACET-2267 PO; +ALPR0.254 PO; +BUSP10TA95 PO; +CETI10TA17 PO; +DESO1TAB6 PO; +ERTA1VIA4 IJ; +MUPI22OI2 TOP; +PANT40TA52 PO; +PRD20T PO; +PRED10TA22 PO; +SERT-414 PO
--- NOTE | 2023-03-20 22:36 | ED Psychosocial ---
General Chief Complaint: Overdose Stated Complaint: XANAX OVERDOSE Source: patient, family, police, EMS Exam Limitations: no limitations History of Present Illness Date Seen by Provider: Mar 20, 2023 Time Seen by Provider: 22:12 Initial Comments 32-year-old female with past medical history of depression, anxiety, and GERD coming in via EMS from home due to an overdose. The patient has had a very stressful week or so. She had a teenage , give up the child for adoption, and this is roughly the 17th anniversary which makes her upset every year. Additionally she is going through a rough divorce. The soon-to-be ex- showed up at her work and has caused a lot of stress this week. She d rank the equivalent of 4 beers tonight, was upset, took a handful of Xanax, later finish the whole bottle. There are roughly 90 pills left of it, and it was 0.25 mg. The prescription was filled on 03/13/2023 with 120 pills. She felt immediate regret and remorse. She called her boyfriend immediately who then called EMS. This occurred at 9:00pm. She can take 4 pills a day which she has been taking with maybe a few days where she took 1 or 2 extra. She states at 1 point in her life she swallowed 60 Xanax 0.5 mg, and she was just sleepy for a while. She maybe has a few drinks of alcohol every other weekend. She took 200 mg of gabapentin as prescribed tonight as well. She is on control. Otherwise denying any acute complaints at this time. Allergies and Home Medications Allergies Coded Allergies: ceftriaxone (Verified Allergy, Intermediate, rash, 10/27/22) Penicillins (Verified Allergy, Unknown, RASH, 09/03/16) Patient Home Medication List Home Medication List Reviewed: Yes ALPRAZolam (ALPRAZolam) 0.25 Mg Tablet, 0.25 MG PO TID PRN for ANXIETY, (Reported) Entered as Reported by: ALIREZA BARROS on 10/24/22 1220 Acetaminophen (Tylenol Extra Strength) 500 Mg Tablet, 1,000 MG PO Q8H PRN for PAIN-MILD (1-4) OR TEMPATURE, (Reported) Entered as Reported by: ALIREZA BARROS on 10/24/22 1220 Buspirone HCl (Buspirone HCl) 10 Mg Tablet, 10 MG PO HS, (Reported) Entered as Reported by: ALIREZA BARROS on 10/24/22 122 Cetirizine HCl (Cetirizine HCl) 10 Mg Tablet, 10 MG PO DAILY PRN for ALLERGY SYMPTOMS, (Reported) Entered as Reported by: ALIREZA BARROS on 10/24/22 122 Desogestrel-Ethinyl Estradiol (Velivet 28 Day Tablet) 7 Days X 3 Tablet, 1 EA PO HS, (Reported) Entered as Reported by: ALIREZA BARROS on 10/24/22 122 Ertapenem Sodium (Ertapenem) 1 Gram Vial, 1 GM IJ DAILY Prescribed by: ELOY MARQUEZ on 10/27/22 113 Hydrocodone/Acetaminophen (Hydrocodone-Acetamin 5-325 mg) 5 Mg-325 Mg Tablet, 1 TAB PO Q6H PRN for PAIN-BREAKTHROUGH, (Reported) Entered as Reported by: ALIREZA BARROS on 10/24/22 122 Mupirocin (Mupirocin) 2 % Oint...g., 1 APPLIC TOP BID, (Reported) Entered as Reported by: ALIREZA BARROS on 10/24/22 122 Pantoprazole Sodium (Pantoprazole Sodium) 40 Mg Tablet.dr, 40 MG PO DAILY PRN for HEARTBURN, (Reported) Entered as Reported by: ALIREZA BARROS on 10/24/22 122 Prednisone (Prednisone) 10 Mg Tab.ds.pk, 10 MG PO DAILY Prescribed by: ELOY MARQUEZ on 10/27/22 1138 Sertraline HCl (Sertraline HCl) 100 Mg Tablet, 100 MG PO HS, (Reported) Entered as Reported by: ALIREZA BARROS on 10/24/22 1220 Review of Systems Constitutional: No fever EENTM: no symptoms reported Respiratory: no symptoms reported Cardiovascular: no symptoms reported Gastrointestinal: no symptoms reported Genitourinary: no symptoms reported Musculoskeletal: no symptoms reported Skin: no symptoms reported Psychiatric/Neurological: See HPI All Other Systems Reviewed Negative Unless Noted: Yes Past Cqfztju-Dxuwzg-Zgazhd Hx Patient Social History Tobacco Use?: Yes Tobacco type used: Cigarettes Substance use?: Yes Substance type: Marijuana Alcohol Use?: Yes Immunizations Up To Date Tetanus Booster (TDap): Less than 5yrs PED Vaccines UTD: Yes First/Initial COVID19 Vaccinat: NO Seasonal Allergies Seasonal Allergies: Yes Past Medical History Surgery/Hospitalization HX: Surgeries: Yes Section Respiratory: No Cardiac: No Neurological: No Reproductive Disorders: Yes Female Reproductive Disorders: Polycystic Ovarian Dis Sexually Transmitted Disease: No HIV/AIDS: No Genitourinary: No Gastrointestinal: No Musculoskeletal: No Endocrine: No HEENT: No Cancer: No Psychosocial: Yes Anxiety Integumentary: No Blood Disorders: No Adverse Reaction/Blood Tranf: No Family Medical History Cardiovascular disease 19 FATHER Hypertension 19 FATHER 19 MOTHER No Pertinent Family Hx Physical Exam Vital Signs - First Documented 03/20/23 22:12 Temp 36.7 Pulse 97 Resp 20 B/P (MAP) 132/96 (108) Pulse Ox 98 O2 Delivery Room Air Capillary Refill : Height, Weight, BMI Height: 5'4.00" Weight: 259lbs. 0.0oz. [id number]; 35.28 BMI Method: General Appearance: WD/WN, other (tearful but cooperative) HEENT: PERRL/EOMI, normal ENT inspection, pharynx normal Neck: non-tender, full range of motion, supple, normal inspection Respiratory: chest non-tender, lungs clear, normal breath sounds, no respiratory distress, no accessory muscle use Cardiovascular: regular rate, rhythm, no edema, no murmur Gastrointestinal: normal bowel sounds, non tender, soft; No distended, No guarding, No rebound Extremities: normal range of motion, non-tender, normal inspection, no pedal edema, no calf tenderness, normal capillary refill Neurologic/Psychiatric: bottom cementer II-XII nml as tested, no motor/sensory deficits, alert, normal mood/affect, oriented x 3, other (remorseful, tearful) Appearance/Memory: appropriate appearance, appropriate insight Behavior/Eye Contact: cooperative, good eye contact, normal speech Thoughts/Hallucinations: normal thought pattern, no apparent hallucination Skin: normal color, warm/dry Progress/Results/Core Measures Results/Orders Lab Results Laboratory Tests Test 03/20/23 22:16 03/20/23 22:30 Range/Units White Blood Count 7.6 4.3-11.0 10^3/uL Red Blood Count 4.67 3.80-5.11 10^6/uL Hemoglobin 14.7 11.5-16.0 g/dL Hematocrit 44 35-52 % Mean Corpuscular Volume 94 80-99 fL Mean Corpuscular Hemoglobin 32 25-34 pg Mean Corpuscular Hemoglobin Concent 34 32-36 g/dL Red Cell Distribution Width 12.4 10.0-14.5 % Platelet Count 217 130-400 10^3/uL Mean Platelet Volume 11.7 9.0-12.2 fL Immature Granulocyte % (Auto) 0 % Neutrophils (%) (Auto) 56 42-75 % Lymphocytes (%) (Auto) 31 12-44 % Monocytes (%) (Auto) 6 0-12 % Eosinophils (%) (Auto) 7 0-10 % Basophils (%) (Auto) 1 0-10 % Neutrophils # (Auto) 4.3 1.8-7.8 10^3/uL Lymphocytes # (Auto) 2.3 1.0-4.0 10^3/uL Monocytes # (Auto) 0.4 0.0-1.0 10^3/uL Eosinophils # (Auto) 0.5 H 0.0-0.3 10^3/uL Basophils # (Auto) 0.0 0.0-0.1 10^3/uL Immature Granulocyte # (Auto) 0.0 0.0-0.1 10^3/uL Sodium Level 140 135-145 MMOL/L Potassium Level 3.6 3.6-5.0 MMOL/L Chloride Level 105 98-107 MMOL/L Carbon Dioxide Level 25 21-32 MMOL/L Anion Gap 10 5-14 MMOL/L Blood Urea Nitrogen 7 7-18 MG/DL Creatinine 0.85 0.60-1.30 MG/DL Estimat Glomerular Filtration Rate 93 BUN/Creatinine Ratio 8 Glucose Level 94 70-105 MG/DL Calcium Level 9.0 8.5-10.1 MG/DL Corrected Calcium 9.0 8.5-10.1 MG/DL Total Bilirubin 0.2 0.1-1.0 MG/DL Aspartate Amino Transf (AST/SGOT) 16 5-34 U/L Alanine Aminotransferase (ALT/SGPT) 14 0-55 U/L Alkaline Phosphatase 72 40-136 U/L Total Protein 7.2 6.4-8.2 GM/DL Albumin 4.0 3.2-4.5 GM/DL Serum Test, Qualitative NEGATIVE NEGATIVE Salicylates Level < 0.3 L 5.0-20.0 MG/DL Acetaminophen Level < 10 L 10-30 UG/ML Serum Alcohol 68 H <10 MG/DL SARS-CoV-2 RNA (RT-PCR) Not Detected Not Detecte My Orders Orders - JULIETA SANCHEZ MD Covid 19 Inhouse Test (03/20/23 22:30) Ua Culture If Indicated (03/20/23:) Cbc And Automated Diff (03/20/23) Comprehensive Metabolic Panel (03/20/23:) Alcohol (03/20/23:30) Drug Screen Stat (Urine) (03/20/23) Acetaminophen (03/20/23:) Salicylate (03/20/23) Ekg Tracing (03/20/23) Ed Iv/Invasive Line Start (03/20/23:30) Monitor-Rhythm Ecg Trace Only (03/20/23:) Ed Iv/Invasive Line Start (03/20/23:30) Hcg,Qualitative Serum (03/20/23:) Ed Admission (Communication) (03/21/23 00:23) Vital Signs/I&O 03/20/23 03/20/23 22:12 22:12 Temp 36.7 Pulse 97 Resp 20 B/P (MAP) 132/96 (108) Pulse Ox 98 O2 Delivery Room Air Room Air 03/20/23 23:59 Intake Total 200 ml Balance 200 ml Progress Progress Note : Progress Note 32-year-old female with above history coming in after an overdose on Xanax. ABCs were intact and vitals were stable on presentation. The patient was immediately tearful on presentation and very much in remorse and regretting what she did. She states she wants to leave at this time, and she feels "silly" that she took all of those pills. She does confirm that she took at least 90 of them. This is a total of 22.5 mg. She does take it daily, so would not want to reverse this and cause seizures. We contacted poison control who recommended watching her for at least 6 hours. If she is symptomatic, they recommended watching her longer. EKG ordered and shows no acute ischemic changes, QRS is just over 100, and poison control was concerned with that. They recommended repeating it until the QRS duration is less than 100. Other labs significant for normal hemoglobin, normal creatinine, negative test, negative COVID test, negative Tylenol level and negative aspirin level. Her alcohol level is just above 60. We will not be able to clear her for psychiatric screening at least in the ER in a reasonable amount of time. I contacted Dr. Weaver, he will admit the patient under observation status for now to the intensive care unit. I then contacted the ICU physician for signout. The patient is holding her own in terms of her airway. We watched her in the ER for at over 2 hours, she is tolerating secretions, and waking up, but is understandably drowsy. Initial ECG Impression Date: Mar 20, 2023 Initial ECG Impression Time: 22:23 Initial ECG Rate: 86 Initial ECG Rhythm: Normal Sinus Comment Narrow QRS, left axis deviation, no significant ST changes or T wave abnormalities Departure Impression Primary Impression: Xanax overdose Disposition: 30 STILL A PATIENT Condition: Stable Admissions Decision to Admit/Date: Mar 21, 2023 Time/Decision to Admit Time: 00:15 Transfer Transfer Facility: [facility] Method of Transfer: EMS Departure-Patient Inst. Referrals: LUIS DIEGO APRN (PCP) Primary Care Physician NAVYA ADAM DO (Family) Primary Care Physician Patient Instructions: ALCOHOL AND SUBSTANCE ABUSE JULIETA SANCHEZ MD Mar 20, 2023 22:36
[2023-03-20 22:38] LABS: BASOPHILS % (AUTO) 1 % (0-10); EOSINOPHILS # (AUTO) 0.5 10^3/uL (0.0-0.3); EOSINOPHILS % (AUTO) 7 % (0-10); HEMATOCRIT 44 % (35-52); HEMOGLOBIN 14.7 g/dL (11.5-16.0); LYMPHOCYTES # (AUTO) 2.3 10^3/uL (1.0-4.0); LYMPHOCYTES % (AUTO) 31 % (12-44); MEAN CORPUSCULAR HEMOGLOBIN 32 pg (25-34); MEAN CORPUSCULAR HGB CONC 34 g/dL (32-36); MEAN CORPUSCULAR VOLUME 94 fL (80-99); MEAN PLATELET VOLUME 11.7 fL (9.0-12.2); MONOCYTES # (AUTO) 0.4 10^3/uL (0.0-1.0); MONOCYTES % (AUTO) 6 % (0-12); NEUTROPHILS # (AUTO) 4.3 10^3/uL (1.8-7.8); NEUTROPHILS % (AUTO) 56 % (42-75); PLATELET COUNT 217 10^3/uL (130-400); WHITE BLOOD COUNT 7.6 10^3/uL (4.3-11.0)
[2023-03-20 22:54] LABS: BILIRUBIN,TOTAL 0.2 MG/DL (0.1-1.0); CHLORIDE 105 MMOL/L (98-107); POTASSIUM 3.6 MMOL/L (3.6-5.0); SODIUM 140 MMOL/L (135-145)
[2023-03-20 23:01] LABS: ACETAMINOPHEN < 10 UG/ML (10-30); ALANINE AMINOTRANSFERASE 14 U/L (0-55); ALKALINE PHOSPHATASE 72 U/L (40-136); BUN/CREATININE RATIO 8; CARBON DIOXIDE 25 MMOL/L (21-32); CREATININE SERUM 0.85 MG/DL (0.60-1.30); GFR ESTIMATED 93; GLUCOSE 94 MG/DL (70-105); SALICYLATE < 0.3 MG/DL (5.0-20.0); TOTAL PROTEIN 7.2 GM/DL (6.4-8.2)
[2023-03-21 02:07] VITALS: BP 103/68
[2023-03-21] MEDS ORDERED: RT-ALBUTEROL SULF 2.5 MG/3 ML PRE-MIX VIAL INH PRN (02:15)
[2023-03-21] MEDS ORDERED: ONDANSETRON INJECTION 4 MG/2 ML (SDV) IV PRN (02:15)
[2023-03-21] MEDS ORDERED: ACETAMINOPHEN 500 MG TABLET PO PRN (02:15)
--- NOTE | 2023-03-21 02:51 | Tele-ICU Consult ---
Progress Note 32 yo F history of anxiety disorder on Xanax 0.25 mg 5-6 doses per day at baseline status post Intentional xanax overdose (90 tablets), poison control notified. Plan admit to ICU for telemetry, 12 hour observation prior to transfer to behavioral health unit/psychiatry admission. Video assessment done. Labs reviewed, preg test negative. Resting comfortably on RA, mild tachypnea. Negative sepsis screen. SCDs order. Will require sitter, psych hold for SI. Diagnosis: Benzodiazepine overdose Monitor for sedation, ataxia, respiratory depression. Can add etCO2 monitor if available. Avoid further sedatives. Monitor for withdrawal when appropriate. A total of _10_ minutes of critical care time was devoted to this patient, including reviewing this patient's available data, including medical history, events of note and test results. This was required to treat and/or prevent further deterioration of critical care conditions ( as above ). Service provided to a patient admitted to ICU bed via interactive E-CARE system with real-time audio and video telecommunications from [facility]- ICU hub located in [place], [place] CHRIS BAKER MD Mar 21, 2023 02:51
[2023-03-21 04:44] LABS: BASOPHILS # (AUTO) 0.1 10^3/uL (0.0-0.1); BASOPHILS % (AUTO) 1 % (0-10); EOSINOPHILS # (AUTO) 0.6 10^3/uL (0.0-0.3); EOSINOPHILS % (AUTO) 8 % (0-10); HEMATOCRIT 39 % (35-52); HEMOGLOBIN 12.9 g/dL (11.5-16.0); LYMPHOCYTES # (AUTO) 2.8 10^3/uL (1.0-4.0); LYMPHOCYTES % (AUTO) 38 % (12-44); MEAN CORPUSCULAR HEMOGLOBIN 32 pg (25-34); MEAN CORPUSCULAR HGB CONC 33 g/dL (32-36); MEAN CORPUSCULAR VOLUME 94 fL (80-99); MEAN PLATELET VOLUME 11.8 fL (9.0-12.2); MONOCYTES # (AUTO) 0.6 10^3/uL (0.0-1.0); MONOCYTES % (AUTO) 8 % (0-12); NEUTROPHILS # (AUTO) 3.2 10^3/uL (1.8-7.8); NEUTROPHILS % (AUTO) 44 % (42-75); PLATELET COUNT 236 10^3/uL (130-400); WHITE BLOOD COUNT 7.2 10^3/uL (4.3-11.0)
[2023-03-21 04:54] LABS: ALBUMIN 3.6 GM/DL (3.2-4.5); POTASSIUM 4.3 MMOL/L (3.6-5.0)
[2023-03-21 04:55] LABS: CALCIUM 8.2 MG/DL (8.5-10.1)
[2023-03-21 04:57] LABS: TOTAL PROTEIN 6.4 GM/DL (6.4-8.2)
[2023-03-21 04:58] LABS: BILIRUBIN,TOTAL 0.3 MG/DL (0.1-1.0)
[2023-03-21 05:00] LABS: CREATININE SERUM 0.69 MG/DL (0.60-1.30); PHOSPHORUS 3.8 MG/DL (2.3-4.7)
[2023-03-21] MEDS: CATHETER FLUSH 10 ML SYR IVP SCH ×3 (06:40→20:01)
--- NOTE | 2023-03-21 11:59 | Short Stay Summary-Hospitalist ---
History of Present Illness HPI/Chief Complaint 32-year-old female with past medical history of depression, anxiety, and GERD coming in via EMS from home due to an overdose. The patient has had a very stressful week or so. She had a teenage , give up the child for adoption, and this is roughly the 17th anniversary which makes her upset every y ear. Additionally she is going through a rough divorce. The soon-to-be ex- showed up at her work and has caused a lot of stress this week. She drank the equivalent of 4 beers tonight, was upset, took a handful of Xanax, later finish the whole bottle. There are roughly 90 pills left of it, and it was 0.25 mg. The prescription was filled on 03/13/2023 with 120 pills. She felt immediate regret and remorse. She called her boyfriend immediately who then called EMS. This occurred at 9:00pm. She can take 4 pills a day which she has been taking with maybe a few days where she took 1 or 2 extra. She states at 1 point in her life she swallowed 60 Xanax 0.5 mg, and she was just sleepy f or a while. She maybe has a few drinks of alcohol every other weekend. She took 200 mg of gabapentin as prescribed tonight as well. She is on control. Otherwise denying any acute complaints at this time. Upon my arrival the patient was awake and alert also voicing regrets over suicide attempt. She reports that she done this 1 other time but did not result in hospitalization. She also recounted the above stressors as the trigger for her overdose. She is seeing a psychiatric nurse practitioner in [place] only recently set up as her previous mental health care provider had left the area. She was intermittently tearful during the interview and menial to either outpatient or inpatient therapy.She voices no other complaints Date Seen 03/21/23 Time Seen by a Provider: 10:00 Attending Physician Iram Paris Aprn PCP Admitting Physician: Tana Lau MD Attending Physician: Tana Lau MD Referring Physician Date of Admission Mar 21, 2023 at 01:44 Home Medications & Allergies Home Medications Reviewed patient Home Medication Reconciliation performed by pharmacy medication reconciliations pest control chemical technician and/or nursing. Patients Allergies have been reviewed. Allergies Allergies Coded Allergies ceftriaxone (Verified Allergy, Intermediate, rash, 10/27/22) Penicillins (Verified Allergy, Unknown, RASH, 09/03/16) Past Scpvipq-Meqnjj-Vykgag Hx Patient Social History Tobacco Use?: Yes Tobacco type used: Cigarettes Smoking Status: Current Everyday Smoker Use of E-Cig and/or Vaping dev: No Substance use?: Yes Substance type: Other Additional substance use comme: XANAX Alcohol Use?: Yes Alcohol type: Beer Alcohol Frequency: Couple times a week Immunizations Up To Date First/Initial COVID19 Vaccinat: NO Tetanus Booster (TDap): Less Than 5 Years Hepatitis A: No Hepatitis B: No PED Vaccines UTD: Yes Seasonal Allergies Seasonal Allergies: Yes Current Status status: No Advance Directives: No Communicates: Verbally Primary Language: Korean Preferred Spoken Language: Korean Is interpretation needed?: No Past Medical History Surgeries: Section Sexually Transmitted Disease: No HIV/AIDS: No Anxiety Blood Disorders: No Adverse Reaction/Blood Tranf: No see above HPI Family Medical History Cardiovascular disease 19 FATHER Hypertension 19 FATHER 19 MOTHER No Pertinent Family Hx Review of Systems Constitutional: see HPI Physical Exam Physical Exam Vital Signs Vital Signs - First Documented 03/20/23 03/21/23 03/21/23 22:12 02:07 02:15 Temp 36.7 Pulse 97 Resp 20 B/P (MAP) 132/96 (108) Pulse Ox 98 O2 Delivery Room Air O2 Flow Rate 2.00 FiO2 21 Capillary Refill : Less Than 3 Seconds Height, Weight, BMI Height: 5'4.00" Weight: 259lbs. 0.0oz. 117.101882zo; 33.69 BMI Method: General Appearance: Mild Distress (From an emotional standpoint only) Neck: Full Range of Motion, Normal Inspection, Non Tender Respiratory: Chest Non Tender, Lungs Clear, Normal Breath Sounds, No Accessory Muscle Use, No Respiratory Distress Cardiovascular: Regular Rate, Rhythm, No Edema, No Gallop, No JVD, No Murmur, Normal Peripheral Pulses Gastrointestinal: Normal Bowel Sounds, No Organomegaly, No Pulsatile Mass, Non Tender, Soft Extremity: Normal Inspection, Normal Range of Motion, Non Tender, No Calf Tenderness, No Pedal Edema Neurologic/Psychiatric: Alert, Oriented x3 Results Results/Procedures Labs Laboratory Tests 03/20/23 22:16 03/21/23 04:27 Patient resulted labs reviewed. Short Stay Diagnosis Discharge Diagnosis-Short Stay Admission Diagnosis 1. Intentional alprazolam overdose. 2. Major depressive disorder. Final Discharge Diagnosis Same as admission diagnosis transfer text Conclusion Plan Patient had an uneventful stay in the intensive care unit awake and alert and agreeable to psychiatric dispensation as yet to be determined by [facility] will be seeing the patient shortly. She is medically stable for psychiatric dispensation. TANA LAU MD Mar 21, 2023 11:59
[2023-03-21 15:30] LABS: BILIRUBIN,URINE NEGATIVE (NEGATIVE); CLARITY,URINE CLEAR; COLOR,URINE YELLOW; GLUCOSE, URINE (UA) NEGATIVE (NEGATIVE); KETONES,URINE NEGATIVE (NEGATIVE); NITRITE,URINE NEGATIVE (NEGATIVE); PH,URINE >=9.0 (5-9); PROTEIN,URINE 2+ (NEGATIVE)
[2023-03-21 15:31] LABS: BACTERIA,URINE LARGE /HPF; LEUKOCYTE ESTERASE ,URINE NEGATIVE (NEGATIVE); WBC,URINE RARE /HPF
[2023-03-21 15:33] LABS: AMPHETAMINE SCREEN, URINE NEGATIVE (NEGATIVE); BARBITURATE SCREEN URINE NEGATIVE (NEGATIVE); CANNABINOID SCREEN, URINE POSITIVE (NEGATIVE); COCAINE SCREEN URINE NEGATIVE (NEGATIVE); METHADONE STAT NEGATIVE (NEGATIVE); OPIATE SCREEN URINE NEGATIVE (NEGATIVE); OXYCODONE STAT NEGATIVE (NEGATIVE); TRICYCLIC ANTIDEPRESSANTS SCRE NEGATIVE (NEGATIVE)
[2023-03-22 04:59] LABS: BASOPHILS % (AUTO) 1 % (0-10); EOSINOPHILS # (AUTO) 0.5 10^3/uL (0.0-0.3); EOSINOPHILS % (AUTO) 8 % (0-10); HEMATOCRIT 41 % (35-52); HEMOGLOBIN 13.5 g/dL (11.5-16.0); LYMPHOCYTES # (AUTO) 2.5 10^3/uL (1.0-4.0); LYMPHOCYTES % (AUTO) 39 % (12-44); MEAN CORPUSCULAR HEMOGLOBIN 32 pg (25-34); MEAN CORPUSCULAR HGB CONC 33 g/dL (32-36); MEAN CORPUSCULAR VOLUME 95 fL (80-99); MEAN PLATELET VOLUME 11.7 fL (9.0-12.2); MONOCYTES # (AUTO) 0.5 10^3/uL (0.0-1.0); MONOCYTES % (AUTO) 8 % (0-12); NEUTROPHILS # (AUTO) 2.9 10^3/uL (1.8-7.8); NEUTROPHILS % (AUTO) 44 % (42-75); PLATELET COUNT 196 10^3/uL (130-400); WHITE BLOOD COUNT 6.4 10^3/uL (4.3-11.0)
[2023-03-22 05:15] LABS: ALBUMIN 3.4 GM/DL (3.2-4.5); POTASSIUM 3.9 MMOL/L (3.6-5.0)
[2023-03-22 05:17] LABS: CALCIUM 8.2 MG/DL (8.5-10.1)
[2023-03-22 05:18] LABS: TOTAL PROTEIN 6.1 GM/DL (6.4-8.2)
[2023-03-22 05:20] LABS: BILIRUBIN,TOTAL 0.2 MG/DL (0.1-1.0)
[2023-03-22 05:22] LABS: CREATININE SERUM 0.71 MG/DL (0.60-1.30)
[2023-03-22] MEDS: CATHETER FLUSH 10 ML SYR IVP SCH (05:30)
[2023-03-22] MEDS ORDERED: busPIRone 10 MG TABLET PO SCH (21:00)
[2023-03-22] MEDS ORDERED: SERTRALINE 100 MG TABLET PO SCH (21:00)
== END 2023-03-22 13:30 ==
LOC: EDUNIT# 22:10 → ER FS 22:12 → ICU 03-21 01:44
PROVIDERS: ADMIT Internal Medicine; ATTEND Internal Medicine
DX: T42.4X2A Poisoning by benzodiazepines, intentional self-harm, initial encounter (principal); F32.9 Major depressive disorder, single episode, unspecified; F17.210 Nicotine dependence, cigarettes, uncomplicated
CPT/HCPCS: 36415; 80053 ×3; 80306; 81000; 83735 ×2; 84100 ×2; 84703; 85025 ×2; 87081; 87636; 93005 ×2; 93041; 99284; G0378; G0480 ×3; 80320; 80329